=== PATIENT | female | born 1970 | race Caucasian/White ===

== ENCOUNTER 2021-01-19 16:04 | Emergency (ER) | payer OTHER, SELFPAY ==
[2021-01-19 18:48] LABS: Absolute Lymphocytes (CBC) 0.7 K/uL (0.7-4.9); Basophils % 0.1 % (0-1.3); Hematocrit 41.1 % (36.0-45.0); Lymphocytes % 9.2 % (15.3-44.8); MPV 7.2 fL (7.6-11.3); RBC Red Blood Cell Count 4.78 M/uL (3.86-4.86)
[2021-01-19] MEDS ORDERED: ONDANSETRON 4 MG/2 ML VIAL ONE (18:56)
[2021-01-19] MEDS ORDERED: NA CHLORIDE 0.9% 1,000 ML ONE (18:56)
[2021-01-19] MEDS ORDERED: KETOROLAC 30 MG/ML INJ ONE (18:56)
[2021-01-19 19:05] LABS: ALT/SGPT 17 U/L (12-78); AST/SGOT 10 U/L (15-37); Albumin 3.2 g/dL (3.4-5.0); Alkaline Phosphatase 124 U/L (45-117); BUN Blood Urea Nitrogen 10 mg/dL (7-18); Bicarbonate 24 mmol/L (21-32); Bilirubin Direct 0.2 mg/dL (0-0.2); Glucose Level 285 mg/dL (74-106); Lipase 50 U/L (73-393); Potassium 4.1 mmol/L (3.5-5.1); Sodium Level 135 mmol/L (136-145)
--- NOTE | 2021-01-19 19:34 | RAD REPORT ---
EXAM DESCRIPTION: CT - Stone Protocol - 01/19/2021 7:10 pm CLINICAL HISTORY: Flank pain. ABD PAIN COMPARISON: No comparisons TECHNIQUE: Axial images were obtained without oral or IV contrast. Lack of contrast limits solid org an and vascular assessment. The [id number] spans the entirety of the system partially obscuring uppermost abdomen and lung bases. Coronal reformatted images were obtained and reviewed. All CT scans are performed using dose optimization technique as appropriate and may include automated exposure control or mA/KV adjustment according to patient size. FINDINGS: The lower lung rodriges are clear. Imaged portions of the liver and spleen show no suspicious findings on non-contrast imaging. The panc reas and adrenal glands are normal. No pathologic lymphadenopathy in the abdomen or pelvis. No urinary tract stones or obstructive uropathy. No bowel obstruction, free air, free fluid or abscess. Normal appendix noted. Moderate degenerative change at L4-5 with vacuum disc degeneration. IMPRESSION: No urinary tract stones or obstructive uropathy. Moderately severe L4-5 spondylosis.
[2021-01-19 19:57] LABS: Urine Blood Negative (Negative); Urine Glucose 2+ (Negative); Urine Protein Trace (Negative); Urine Specific Gravity 1.015 (1.005-1.030); Urine pH 5.5 (5.0-7.0)
[2021-01-19] MEDS ORDERED: PROMETHAZINE INJ 25 MG/ML AMP ONE (20:24)
[2021-01-19] MEDS ORDERED: DICYCLOMINE HCL 10 MG CAP ONE (20:24)
--- NOTE | 2021-01-19 20:33 | ER ---
Nurse's Notes [facility] Name: Carmen Stahl Age: 50 yrs Sex: Female : 1970 Arrival Date: 01/19/2021 Time: 16:06 Bed 5 Private MD: Diagnosis: Acute Gastroenteritis Presentation: 01/19 16:48 Chief complaint: Patient states: lower back pain radiating to the L side and the front ca1 on the L side since yesterday. +N/V/D. Denies fever. Coronavirus screen: Client denies travel out of the [place] in the last 14 days. At this time, the client does not indicate any symptoms associated with coronavirus-19. Ebola Screen: Patient negative for fever greater than or equal to 101.5 degrees Fahrenheit, and additional compatible Ebola Virus Disease symptoms Patient denies exposure to infectious person. Patient denies travel to an Ebola-affected area in the 21 days before illness onset. No symptoms or risks identified at this time. Initial Sepsis Screen: Does the patient meet any 2 criteria? No. Patient's initial sepsis screen is negative. Does the patient have a suspected source of infection? No. Patient's initial sepsis screen is negative. Risk Assessment: Do you want to hurt yourself or someone else? Patient reports no desire to harm self or others. Onset of symptoms was January 19, 2021. 16:48 Method Of Arrival: Ambulatory ca1 16:48 Acuity: RIA 2 ca1 Triage Assessment: 18:15 General: Appears distressed, uncomfortable, Behavior is cooperative, appropriate for ld1 age, anxious. Pain: Complains of pain in left flank and left lower quadrant. EENT: No deficits noted. Neuro: No deficits noted. Cardiovascular: No deficits noted. Respiratory: No deficits noted. GI: Reports lower abdominal pain, nausea, vomiting. : No signs and/or symptoms were reported regarding the genitourinary system. Derm: No deficits noted. Musculoskeletal: No deficits noted. 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 - Social history:: Smoking status: Patient denies any tobacco usage or history of. Screenin:32 Abuse screen: Denies threats or abuse. Denies injuries from another. Nutritional ld1 screening: No deficits noted. Tuberculosis screening: No symptoms or risk factors identified. Fall Risk None identified. Assessment: 18:15 General: SEE TRIAGE NOTE. GI: Abdomen is non-distended. ld1 19:30 General: Appears in no apparent distress. comfortable, Behavior is calm, cooperative, rr5 appropriate for age. Neuro: Level of Consciousness is awake, alert, obeys commands, Oriented to person, place, time. Cardiovascular: Capillary refill < 3 seconds Patient's skin is warm and dry. Respiratory: Airway is patent Respiratory effort is even, unlabored, Respiratory pattern is regular, symmetrical. GI: Reports lower abdominal pain, diarrhea, nausea, vomiting. : Reports pain in left flank(s). 20:41 Reassessment: Patient appears in no apparent distress at this time. Patient is alert, rr5 oriented x 3, equal unlabored respirations, skin warm/dry/pink. discharge instruction given and explained without complaints made Patient states symptoms have improved. Vital Signs: 16:48 Pulse 125; Resp 18 S; Temp 97.5(TE); Pulse Ox 100% on R/A; Weight 63.5 kg (R); Height 5 ca1 ft. 3 in. (160.02 cm) (R); Pain 5/10; 16:53 BP 134 / 85; ca1 18:30 BP 126 / 75; Pulse 111; Resp 19; Pulse Ox 99% ; ld1 19:40 BP 120 / 76; Pulse 104; Resp 18; Pulse Ox 99% on R/A; rv 20:42 BP 120 / 71; Pulse 101; Resp 17; Pulse Ox 98% ; rr5 16:48 Body Mass Index 24.80 (63.50 kg, 160.02 cm) ca1 ED Course: 16:06 Patient arrived in ED. as 16:52 Triage completed. ca1 16:53 Arm band placed on right wrist. ca1 18:23 Jayesh Dykes, SAL is Primary Nurse. bp 18:29 Frantz Cason PA is PHCP. jr8 18:29 Augie Ramachandran MD is Attending Physician. jr8 18:32 Patient has correct armband on for positive identification. Placed in gown. Bed in low ld1 position. Call light in reach. Side rails up X2. 18:35 Inserted saline lock: 22 gauge in right antecubital area, using aseptic technique. ld1 Blood collected. 19:10 CT Stone Protocol In Process Unspecified. EDMS 20:42 No provider procedures requiring assistance completed. IV discontinued, intact, rr5 bleeding controlled, No redness/swelling at site. Pressure dressing applied. Administered Medications: 18:40 Drug: NS 0.9% 1000 ml Route: IV; Rate: 1000 ml; Site: right antecubital; bp 19:41 Follow up: IV Status: Completed infusion; IV Intake: 1000ml rv 18:40 Drug: TORadol - (ketorolac) 15 mg Route: IVP; Site: right antecubital; bp 19:41 Follow up: Response: No adverse reaction rv 18:40 Drug: Zofran (Ondansetron) 4 mg Route: IVP; Site: right antecubital; bp 19:41 Follow up: Response: No adverse reaction rv 20:12 Drug: Bentyl (dicyclomine) 20 mg Route: PO; rv 20:43 Follow up: Response: No adverse reaction rr5 20:12 Drug: Promethazine 12.5 mg Route: IVP; Site: right antecubital; rv 20:43 Follow up: Response: No adverse reaction rr5 Intake: 19:41 IV: 1000ml; Total: 1000ml. rv Outcome: 20:33 Discharge ordered by . jr8 20:42 Discharged to home ambulatory. rr5 20:42 Condition: stable 20:42 Discharge instructions given to patient, Instructed on discharge instructions, follow up and referral plans. medication usage, Demonstrated understanding of instructions, follow-up care, medications, Prescriptions given X 2. 20:43 Patient left the ED. rr5 Addendum: 01/23/2021 13:00 Addendum: Culture Results: Positive urine culture. Bacteria is resistant to, has a a5 intermediate sensitivity, or is not tested against prescribed antibiotics. Report given to KO[facility] for further evaluation and then to boat cleaner for follow up with patient. Phone call Attempt #1 left voice mail. 18:54 Addendum: Culture Results: Positive urine culture. Prescription called-in to pharmacy [facility] of choice. to [facility] in [place], [place], called in Bactrim DS per Rayo Miramontes NP. Signatures: Dispatcher [employer] Noris William Audri, RN RN aa5 Frantz Cason PA PA jr8 Jayesh Dykes, RN RN bp Sd Ho, RN RN rv Vinay Flynn, RN RN rr5 Alexandra Mccloud, RN RN ca1 Lida Oshea RN RN ld1
--- NOTE | 2021-01-19 20:33 | EDPHYS ---
Physician Documentation [facility] Name: Carmen Stahl Age: 50 yrs Sex: Female : 1970 Arrival Date: 01/19/2021 Time: 16:06 Bed 5 Private MD: ED Physician Augie Ramachandran HPI: 01/19 18:58 This 50 yrs old Female presents to ER via Ambulatory with complaints of jr8 Vomiting/Diarrhea, Flank Pain. 18:58 Patient presents for abd pain and vomiting. PMHx DM but has not had insulin in a week. jr8 Also reports polydipsia, polyuria, L flank pain, dysuria. . 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 - Social history:: Smoking status: Patient denies any tobacco usage or history of. ROS: 18:59 Cardiovascular: Negative for chest pain, palpitations, and edema, Respiratory: Negative jr8 for shortness of breath, cough, wheezing, and pleuritic chest pain, MS/Extremity: Negative for injury and deformity, Neuro: Negative for headache, weakness, numbness, tingling, and seizure. 18:59 Abdomen/GI: Positive for abdominal pain, vomiting, diarrhea. 18:59 Back: Positive for flank pain, bilaterally. 18:59 : Positive for burning with urination. 18:59 All other systems are negative. Exam: 19:01 Chest/axilla: Normal chest wall appearance and motion. Nontender with no deformity. jr8 No lesions are appreciated. Cardiovascular: Regular rate and rhythm with a normal S1 and S2. No gallops, murmurs, or rubs. Normal PMI, no JVD. No pulse deficits. Respiratory: Lungs have equal breath sounds bilaterally, clear to auscultation and percussion. No rales, rhonchi or wheezes noted. No increased work of breathing, no retractions or nasal flaring. Skin: Warm, dry with normal turgor. Normal color with no rashes, no lesions, and no evidence of cellulitis. MS/ Extremity: Pulses equal, no cyanosis. Neurovascular intact. Full, normal range of motion. Neuro: Awake and alert, GCS 15, oriented to person, place, time, and situation. Cranial nerves II-XII grossly intact. Motor strength 5/5 in all extremities. Sensory grossly intact. Cerebellar exam normal. Normal gait. 19:01 Abdomen/GI: Inspection: abdomen appears normal, Bowel sounds: normal, in all quadrants, Palpation: soft, moderate abdominal tenderness, in all quadrants, involuntary guarding, is elicited in all quadrants. 19:01 Back: CVA tenderness, that is moderate, is noted bilaterally. Vital Signs: 16:48 Pulse 125; Resp 18 S; Temp 97.5(TE); Pulse Ox 100% on R/A; Weight 63.5 kg (R); Height 5 ca1 ft. 3 in. (160.02 cm) (R); Pain 5/10; 16:53 BP 134 / 85; ca1 18:30 BP 126 / 75; Pulse 111; Resp 19; Pulse Ox 99% ; ld1 19:40 BP 120 / 76; Pulse 104; Resp 18; Pulse Ox 99% on R/A; rv 20:42 BP 120 / 71; Pulse 101; Resp 17; Pulse Ox 98% ; rr5 16:48 Body Mass Index 24.80 (63.50 kg, 160.02 cm) ca1 MDM: 18:42 Patient medically screened. jr8 20:05 Data reviewed: vital signs, nurses notes, lab test result(s), radiologic studies, CT jr8 scan. Data interpreted: Pulse oximetry: on room air is 99 %. Interpretation: normal. Counseling: I had a detailed discussion with the patient and/or guardian regarding: the historical points, exam findings, and any diagnostic results supporting the discharge/admit diagnosis, lab results, radiology results, the need for outpatient follow up, a family practitioner, to return to the emergency department if symptoms worsen or persist or if there are any questions or concerns that arise at home. 20:32 Special discussion: Based on the patient's Hx, exam, and Dx evaluation, there is no jr8 indication for emergent surgery or inpatient Tx. It is understood by the patient/guardian that if the Sx's persist or worsen they need to return immediately for re-evaluation. 20:32 ED course: Patient educated on what to look for to return: unmanageable BS, blood in jr8 vomit or stool, worsening of current condition. Educated on simple diet until issue resolves. Educated on talking with pharmacy for help with medication cost. Verbalized understanding. Good response to medications received in ED. Prescriptions given. . 01/19 17:08 Order name: Glucose, Ancillary Testing; Complete Time: 18:26 EDMS 01/19 18:28 Order name: Basic Metabolic [facility] 01/19 18:28 Order name: CBC with Diff [facility] 01/19 18:28 Order name: Hepatic Function [facility] 01/19 18:28 Order name: Lipase [facility] 01/19 18:29 Order name: Basic Metabolic Panel; Complete Time: 19:13 [facility] 01/19 18:29 Order name: CBC with Automated Diff; Complete Time: 18:57 [facility] 01/19 18:29 Order name: Liver (Hepatic) Function; Complete Time: 19:13 [facility] 01/19 18:29 Order name: Lipase; Complete Time: 19:13 [facility] 01/19 18:29 Order name: CT Stone Protocol; Complete Time: 19:36 [facility] 01/19 18:57 Order name: Urine Microscopic Only 8 01/19 19:57 Order name: Urine Dipstick-Ancillary; Complete Time: 20:02 [facility] 01/19 19:59 Order name: Urine --Ancillary (enter results) 3 01/19 19:59 Order name: Urine --Ancillary [facility] 01/19 18:28 Order name: IV Saline Lock; Complete Time: 18:43 [facility] 01/19 18:28 Order name: Labs collected and sent; Complete Time: 18:42 [facility] 01/19 18:57 Order name: Urine Dipstick-Ancillary (obtain specimen); Complete Time: 20:01 jr8 Administered Medications: 18:40 Drug: NS 0.9% 1000 ml Route: IV; Rate: 1000 ml; Site: right antecubital; bp 19:41 Follow up: IV Status: Completed infusion; IV Intake: 1000ml rv 18:40 Drug: TORadol - (ketorolac) 15 mg Route: IVP; Site: right antecubital; bp 19:41 Follow up: Response: No adverse reaction rv 18:40 Drug: Zofran (Ondansetron) 4 mg Route: IVP; Site: right antecubital; bp 19:41 Follow up: Response: No adverse reaction rv 20:12 Drug: Bentyl (dicyclomine) 20 mg Route: PO; rv 20:43 Follow up: Response: No adverse reaction rr5 20:12 Drug: Promethazine 12.5 mg Route: IVP; Site: right antecubital; rv 20:43 Follow up: Response: No adverse reaction rr5 Disposition: 01/19/21 20:33 Discharged to Home. Impression: Acute Gastroenteritis. - Condition is Stable. - Discharge Instructions: Viral Gastroenteritis, Adult. - Prescriptions for Bentyl 20 mg Oral Tablet - take 1 tablet by ORAL route every 6 hours As needed; 20 tablet. Zofran 4 mg Oral Tablet - take 1 tablet by ORAL route every 12 hours As needed; 20 tablet. - Medication Reconciliation Form, Thank You Letter, Antibiotic Education, Prescription Opioid Use form. - Follow up: Private Physician; When: 5 - 6 days; Reason: Recheck today's complaints, Continuance of care, Re-evaluation by your physician. - Problem is new. - Symptoms have improved. Addendum: 01/23/2021 19:11 Co-signature as Attending Physician, Augie Ramachandran MD. r n Signatures: Dispatcher [employer] EDMS Augie Ramachandran MD MD rn Roszak, Josh, PA PA jr8 Jayesh Dykes, RN RN bp Sd Ho RN RN rv Vinay Flynn RN RN rr5 Alexandra Mccloud RN SAL ca1 Lida Oshea RN RN ld1 Corrections: (The following items were deleted from the chart) 01/19 20:43 20:33 01/19/2021 20:33 Discharged to Home. Impression: Acute Gastroenteritis. Condition rr5 is Stable. Forms are Medication Reconciliation Form, Thank You Letter, Antibiotic Education, Prescription Opioid Use. Follow up: Private Physician; When: 5 - 6 days; Reason: Recheck today's complaints, Continuance of care, Re-evaluation by your physician. Problem is new. Symptoms have improved. jr8
[2021-01-19 20:48] VITALS: TEMP 97.5
[2021-01-19 20:54] VITALS: BP 120/71; O2SAT 98
[2021-01-19 21:36] LABS: Urine Bacteria >50 /HPF (<20)
[2021-01-19 21:48] LABS: Urine Specific Gravity/Preg 1.015 (1.005-1.030)
== END 2021-01-19 20:43 | disposition home or self-care (01) ==
LOC: ER 16:04
DX: K52.9 Noninfective gastroenteritis and colitis, unspecified (principal); E11.9 Type 2 diabetes mellitus without complications; Z79.4 Long term (current) use of insulin
CPT/HCPCS: 36415; 74176; 76377; 80048; 80076; 81003; 81015; 81025; 82947; 83690; 85025; 87077; 87086; 87088; 87186; 96361; 96374; 96375; 99284; J2405; J2550; J7030

== ENCOUNTER 2021-05-12 12:16 | Emergency (ER) | payer SELFPAY ==
--- OUTSIDE RECORDS SUMMARY | 2021-05-12 12:19 | XMS REPORT | Continuity of Care Document ---
:1970 Author Organization [facility] t Address [address] [place] [address] Care Team Providers Name Role Phone Unavailable Unavailable Unavailable Problems Condition Condition Condition Status Onset Resolution Last Treating Co mments Source Name Details Category Date Date Treatment Clinician Date Osteoporos Osteoporos Problem Active 2020-0 [facility] is is 3-18 da 00:00: Medical 00 Group Left upper Left Upper Problem Active 2020-0 [facility] quadrant Quadrant 2-18 da pain Pain 00:00: Medical 00 Group Lower Lower Problem Active 2020-0 [facility] abdominal Abdominal 2-18 da pain Pain 00:00: Medical 00 Group Urinary Urinary Problem Active 2019- [facility] tract Tract 4-24 da infectious Infectious 00:00: Me dical disease Disease 00 Group Plantar Plantar Problem Active 2019-0 [facility] fasciitis Fasciitis 4-24 da 00:00: Medical 00 Group Lethargy Lethargy Problem Active 2018-0 [facility] 4-11 da 00:00: Medical 00 Group Onychomyco Onychomyco Problem Active [facility] sis sis [facility] Candidiasi Candidiasi Problem Active [facility] s s [facility] Diabetes Diabetes Problem Active [facility] mellitus [facility] Type 2 Type 2 Problem Active [facility] diabetes Diabetes da mellitus [facility] Hyperchole Hyperchole Problem Active [facility] sterolemia sterolemia [facility] Constipati Constipati Problem Active [facility] on on [facility] Endometrio Endometrio Problem Active [facility] sis sis da (clinical) (Clinical) Me dical Group Dysmenorrh Dysmenorrh Problem Active [facility] ea ea [facility] Pain in Pain in Problem Active [facility] pelvis Pelvis [facility] Low back Low Back Problem Active [facility] pain [facility] Left lower Left Lower Problem Active [facility] quadrant Quadrant da pain Pain [facility] HPV - HPV - Problem Active [facility] Human Human da papillomav Papillomav Me dical irus test irus Test Grou p positive Positive Strain of Strain of Problem Active [facility] back Back da muscle [facility] Pain in Pain in Problem Active [facility] bilateral Bilateral da legs [facility] Allergies, Adverse Reactions, Alerts Allergy Allergy Status Severity Reaction(s) Onset Inactive Treating Comm ents Source Name Type Date Date Clinician VICTONANCY Allergy Active Moderate Diarrhea Larkin gor to to severe da substanc Medical e Group Social History Smoking Status Start Date Stop Date Source Never Smoker [facility] Medications Ordered Filled Start Stop Current Ordering Indication Dosage Frequency Signature Comments Components Source Medication Medication Date Date Medication? Clinician (SIG) Name Name alendronate alendronate No alendronat [facility] 70 mg 70 mg e 70 mg da tablet Take tablet Take tablet Medical 1 tablet 1 tablet Take 1 Group every week every week tablet by oral by oral every week route. route. by oral route. amoxicillin amoxicillin No amoxicilli [facility] 500 mg 500 mg n 500 mg da tablet tablet tablet Medical Group Contour Contour No Contour [facility] Next Test Next Test Next Test da Strips Take Strips Take Strips Medical 1 strip 3 1 strip 3 Take 1 Kavon up times a day times a day strip 3 by miscell. by miscell. times a route. route. day by miscell. route. Diflucan Diflucan No 1 Q1D Diflucan [facility] 150 mg 150 mg 150 mg da tablet Take tablet Take tablet Medical 1 tablet 1 tablet Take 1 Group every day every day tablet by oral by oral every day route. route. by oral route. insulin insulin No insulin [facility] syringe syringe syringe da U-100 with U-100 with U-100 with Medical needle 0.3 needle 0.3 needle 0.3 Group mL 31 gauge mL 31 gauge mL 31 x 02/12" USE x 02/12" USE gauge x DIRECTED DIRECTED 02/12" USE FOR INSULIN FOR INSULIN ADMINISTRAT ADMINISTRAT DIRECTED ION 4 TIMES ION 4 TIMES FOR DAILY DAILY INSULIN ADMINISTRA TION 4 TIMES DAILY Novolin N Novolin N No Novolin N [facility] NPH U-100 NPH U-100 NPH U-100 da Insulin Insulin Insulin Medica l isophane isophane isophane Kavon up 100 unit/mL 100 unit/mL 100 subcutaneou subcutaneou unit/mL s susp s susp subcutaneo INJECT 20 INJECT 20 us susp UNITS UNITS INJECT 20 SUBCUTANEOU SUBCUTANEOU UNITS SLY EVERY SLY EVERY SUBCUTANEO MORNING. MORNING. USLY EVERY MORNING. Novolin R Novolin R No Novolin R [facility] Regular Regular Regular da U-100 U-100 U-100 Medical Insulin 100 Insulin 100 Insulin Group unit/mL unit/mL 100 injection injection unit/mL solution solution injection SEE NOTES SEE NOTES solution Sliding Sliding SEE NOTES scale scale Sliding 150-200 use 150-200 use scale 2 units 2 units 150-200 200-250-4 200-250-4 use 2 units units units 250-300-6 250-300-6 200-250-4 units. if units. if units over 300 -8 over 300 -8 250-300-6 units. units. units. if check blood check blood over 300 sugars TID sugars TID -8 units. check blood sugars TID sulfamethox sulfamethox No 1 Q12H sulfametho [facility] azole 800 azole 800 xazole 800 da mg-trimetho mg-trimetho mg-trimeth Medical prim 160 mg prim 160 mg oprim 160 Group tablet Take tablet Take mg tablet 1 tablet 1 tablet Take 1 every 12 every 12 tablet hours by hours by every 12 oral route. oral route. hours by take for take for oral UTI UTI route. take for UTI terconazole terconazole No terconazol [facility] 0.4 % 0.4 % e 0.4 % da vaginal vaginal vaginal Medica l cream cream cream Group INSERT ONE INSERT ONE INSERT ONE APPLICATORF APPLICATORF APPLICATOR UL UL FUL VAGINALLY VAGINALLY VAGINALLY AT BEDTIME AT BEDTIME AT BEDTIME FOR 7 DAYS FOR 7 DAYS FOR 7 DAYS DIRECTED. DIRECTED. DIRECTED. Vital Signs Vital Name Observation Time Observation Value Comments Source BP Diastolic 2019-11-17 00:00:00 92 mm[Hg] [facility] Height 2019-11-17 00:00:00 63.5 [in_i] [facility] BMI (Body Mass 2019-11-17 00:00:00 30.9 kg/m2 [facility] Medical Index) Group BP Systolic 2019-11-17 00:00:00 144 mm[Hg] [facility] Body Weight 2019-11-17 00:00:00 2832 [oz_av] [facility] Body Weight 2019-01-21 00:00:00 2848 [oz_av] [facility] Procedures Procedure Date / Time Performing Clinician Source Performed CT, abdomen + pelvis, w/ 2019-11-17 00:00:00 [facility] Anesth Tubal Ligation [facility] Caesarean [facility] Tonsillectomy [facility] Encounters Start End Encounter Admission Attending Care Care Encounter Source Date/Time Date/Time Type Type Clinicians Facility Department ID 2019-11-17 2019-11-17 Kenton H[place]NESSY [place] - [id number] [facility] 00:00:00 00:00:00 MD Carl: [employer] [address] - [address], [facility], [place] [place] [address] , Ph. 2019-01-21 2019-01-21 Kenton HENNESSY [place] - [id number] M [facility] 00:00:00 00:00:00 MD Carl: [employer] [address] - [address], [facility] [address] , Ph. Results Test Description Test Time Test Comments Results Result Comments Source Urinalysis macro (dipstick) panel - Urine 2019-11-19 11:36:0 0 Test Item Value Reference Range Interpretation Comme nts Leukocytes (test code = Leukocytes) Negative Nitrite (test code = Nitrite) negative Urobilinogen (test code = Urobilinogen) .2 Protein (test code = Protein) Negative pH (test code = pH) 5.5 Blood (test code = Blood) Hemolyzed: Trace Specific [place] (test code = Specific [place]) 1.030 Ketone (test code = Ketone) Negative Bilirubin (test code = Bilirubin) Negative Glucose (test code = Glucose) Negative Appearance (test code = Appearance) Clear Color (test code = Color) Yellow [facility] Differential panel - [id number] 00:00:00 Test Item Value Reference Range Interpretation Comments Leukocytes [#/volume] in Blood 7.7 x10e3/uL 3.4-10.8 by Automated count (test code = 6690-2) Erythrocytes [#/volume] in 4.95 x10e6/uL 3.77-5.28 Blood by Automated count (test code = 789-8) Hemoglobin [Mass/volume] in 14.7 g/dL 11.1-15.9 Blood (test code = 718-7) Hematocrit [Volume Fraction] of 43.8 % 34.0-46.6 Blood by Automated count (test code = 4544-3) Erythrocyte mean corpuscular 89 fL 79-97 volume [Entitic volume] by Automated count (test code = 787-2) Erythrocyte mean corpuscular 29.7 pg 26.6-33.0 hemoglobin [Entitic mass] by Automated count (test code = 785-6) Erythrocyte mean corpuscular 33.6 g/dL 31.5-35.7 hemoglobin concentration [Mass/volume] by Automated count (test code = 786-4) Erythrocyte distribution width 12.9 % 11.7-15.4 [Ratio] by Automated count (test code = 788-0) Platelets [#/volume] in Blood 317 x10e3/uL 150-450 by Automated count (test code = 777-3) Neutrophils/100 leukocytes in 65 % not estab. Blood by Automated count (test code = 770-8) Lymphocytes/100 leukocytes in 27 % not estab. Blood by Automated count (test code = 736-9) Monocytes/100 leukocytes in 6 % not estab. Blood by Automated count (test code = 5905-5) Eosinophils/100 leukocytes in 2 % not estab. Blood by Automated count (test code = 713-8) Basophils/100 leukocytes in 0 % not estab. Blood by Automated count (test code = 706-2) immature cells (test code = manpower development specialist immature cells) Neutrophils [#/volume] in Blood 5.0 x10e3/uL 1.4-7.0 by Automated count (test code = 751-8) Lymphocytes [#/volume] in Blood 2.1 x10e3/uL 0.7-3.1 by Automated count (test code = 731-0) Monocytes [#/volume] in Blood 0.4 x10e3/uL 0.1-0.9 by Automated count (test code = 742-7) Eosinophils [#/volume] in Blood 0.1 x10e3/uL 0.0-0.4 by Automated count (test code = 711-2) Basophils [#/volume] in Blood 0.0 x10e3/uL 0.0-0.2 by Automated count (test code = 704-7) immature granulocytes (test 0 % not estab. code = immature granulocytes) Immature granulocytes 0.0 x10e3/uL 0.0-0.1 [#/volume] in Blood by Automated count (test code = 94428-6) Nucleated erythrocytes/100 manpower development specialist leukocytes [Ratio] in Blood by Automated count (test code = 97258-0) Morphology [Interpretation] in manpower development specialist Blood Narrative (test code = 66757-2) [facility] 2000 [facility] - Serum or Plasma 2019-11-18 00:00:00 Test Item Value Reference Range Interpretation Comments Glucose [Mass/volume] in 180 mg/dL 65-99 H Serum or Plasma (test code = 2345-7) Urea nitrogen [Mass/volume] 13 mg/dL 6-24 in Serum or Plasma (test code = 3094-0) Creatinine [Mass/volume] in 0.55 mg/dL 0.57-1.00 L Serum or Plasma (test code = 2160-0) eGFR if nonafricn AM (test 110 mL/min/1.73 >59 code = eGFR if nonafricn AM) eGFR if africn AM (test code 127 mL/min/1.73 >59 = eGFR if africn AM) Urea nitrogen/Creatinine 24 9-23 H [Mass Ratio] in Serum or Plasma (test code = 3097-3) Sodium [Moles/volume] in 139 mmol/L 134-144 Serum or Plasma (test code = 2951-2) Potassium [Moles/volume] in 4.4 mmol/L 3.5-5.2 Serum or Plasma (test code = 2823-3) Chloride [Moles/volume] in 100 mmol/L 96-106 Serum or Plasma (test code = 2075-0) Carbon dioxide, total 22 mmol/L 20-29 [Moles/volume] in Serum or Plasma (test code = 2027-9) Calcium [Mass/volume] in 9.1 mg/dL 8.7-10.2 Serum or Plasma (test code = 94803-9) Protein [Mass/volume] in 7.1 g/dL 6.0-8.5 Serum or Plasma (test code = 2885-2) Albumin [Mass/volume] in 4.2 g/dL 3.8-4.8 Serum or Plasma (test code = 1751-7) Globulin [Mass/volume] in 2.9 g/dL 1.5-4.5 Serum by calculation (test code = 76554-9) Albumin/Globulin [Mass Ratio] 1.4 1.2-2.2 in Serum or Plasma (test code = 1759-0) Bilirubin.total [Mass/volume] 0.5 mg/dL 0.0-1.2 in Serum or Plasma (test code = 1975-2) Alkaline phosphatase 129 IU/L 39-117 H [Enzymatic activity/volume] in Serum or Plasma (test code = 6768-6) Aspartate aminotransferase 13 IU/L 0-40 [Enzymatic activity/volume] in Serum or Plasma (test code = 1920-8) Alanine aminotransferase 11 IU/L 0-32 [Enzymatic activity/volume] in Serum or Plasma (test code = 1742-6) [facility] 1996 panel - Serum or [id number] 00:00:00 Test Item Value Reference Range Interpretation Comments Cholesterol [Mass/volume] in Serum 181 mg/dL 100-199 or Plasma (test code = 2093-3) Triglyceride [Mass/volume] in Serum 63 mg/dL 0-149 or Plasma (test code = 2571-8) Cholesterol in HDL [Mass/volume] in 54 mg/dL >39 Serum or Plasma (test code = 2085-9) Cholesterol in VLDL [Mass/volume] 13 mg/dL 5-40 in Serum or Plasma by calculation (test code = 21933-0) Cholesterol in LDL [Mass/volume] in 114 mg/dL 0-99 H Serum or Plasma by calculation (test code = 07302-2) comment: (test code = comment:) manpower development specialist [facility] [Enzymatic activity/volume] in Serum or Plasma 2019-11-18 00:00:00 Test Item Value Reference Range Interpretation Comments Lipase [Enzymatic activity/volume] in 17 U/L 14-72 Serum or Plasma (test code = 3040-3) [facility] [Enzymatic activity/volume] in Serum or Plasma 2019-11-18 00:00:00 Test Item Value Reference Range Interpretation Comments Amylase [Enzymatic activity/volume] in 32 U/L 31-110 Serum or Plasma (test code = 1798-8) [facility] [id number] 09:25:00 Test Item Value Reference Range Interpretation Comments [facility] blood collection sent to [facility] (test code = [facility] blood collection) [facility]
[2021-05-12 13:20] LABS: Absolute Lymphocytes (CBC) 1.2 K/uL (0.7-4.9); Basophils % 0.2 % (0-1.3); Hematocrit 43.2 % (36.0-45.0); Lymphocytes % 12.3 % (15.3-44.8); MPV 6.9 fL (7.6-11.3); RBC Red Blood Cell Count 5.02 M/uL (3.86-4.86)
[2021-05-12] MEDS ORDERED: NA CHLORIDE 0.9% 1,000 ML ONE ×2 (13:28→14:17)
--- NOTE | 2021-05-12 14:02 | ER ---
Nurse's Notes [facility] Name: Carmen Stahl Age: 51 yrs Sex: Female : 1970 Arrival Date: 05/12/2021 Time: 12:18 Bed Waiting Private MD: Diagnosis: Presentation: 05/12 12:48 Chief complaint: Patient states: PT reports sudden onset of palpitations, dizziness, ss throbbing to eyes, after inhaling unknown powder substance when handling trash. C/O not feeling well. Coronavirus screen: Client denies travel out of the [place] in the last 14 days. At this time, the client does not indicate any symptoms associated with coronavirus-19. Ebola Screen: Patient negative for fever greater than or equal to 101.5 degrees Fahrenheit, and additional compatible Ebola Virus Disease symptoms Patient denies exposure to infectious person. Patient denies travel to an Ebola-affected area in the 21 days before illness onset. Initial Sepsis Screen: Does the patient meet any 2 criteria? No. Patient's initial sepsis screen is negative. Does the patient have a suspected source of infection? No. Patient's initial sepsis screen is negative. Risk Assessment: Do you want to hurt yourself or someone else?. Onset of symptoms was May 12, 2021 at 08:30. 12:48 Method Of Arrival: Ambulatory ss 12:48 Acuity: RIA 3 ss 12:52 Chief complaint: Patient states: FSBS 293. ss 12:57 Note EKG and BGL done in triage. ss 13:59 Care prior to arrival: Medication(s) given: Normal saline infusion, 1000 mL. lm7 Triage Assessment: 12:52 General: Appears in no apparent distress. Behavior is calm, cooperative. Pain: Denies ss pain. Neuro: No deficits noted. Cardiovascular: Denies chest pain. Respiratory: No deficits noted. Derm: Skin is intact, Skin is dry, Skin is pink, warm \T\ dry. 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 Last tetanus immunization: unknown, Flu vaccine is not up to date. - Social history:: Smoking status: Patient denies any tobacco usage or history of. Vital Signs: 12:48 BP 195 / 103; Pulse 130; Resp 18; Temp 98.9; Pulse Ox 99% ; Weight 63.5 kg; Height 5 ss ft. 4 in. (162.56 cm); Pain 0/10; 12:48 Body Mass Index 24.03 (63.50 kg, 162.56 cm) ED Course: 12:18 Patient arrived in ED. mr 12:52 Triage completed. 12:58 Ehsan Núñez MD is Attending Physician. [facility] 13:05 Inserted saline lock: 20 gauge in right antecubital area, using aseptic technique. ne Blood collected. 13:58 intact, bleeding controlled, No redness/swelling at site. Pressure dressing applied. lm7 Administered Medications: 13:09 Drug: NS 0.9% 1000 ml Route: IV; Rate: 1 bolus; Site: right antecubital; Delivery: ss Primary tubing; 14:00 Follow up: Rate change 1000 ml; IV Status: Completed infusion lm7 Outcome: 14:01 AMA AMA form signed lm7 14:01 Condition: improved 14:01 Instructed on follow up and referral plans. the need for admit, Demonstrated understanding of instructions. 14:08 Patient left the ED. eb Signatures: Ehsan Núñez MD MD kdr Rivera, Dawna mr Zeny Winston, RN SAL Vani Ragland Moriah mt Botello, Elizabeth eb
[2021-05-12 14:13] LABS: ALT/SGPT 23 U/L (12-78); AST/SGOT 8 U/L (15-37); Albumin 3.9 g/dL (3.4-5.0); Alkaline Phosphatase 152 U/L (45-117); BUN Blood Urea Nitrogen 12 mg/dL (7-18); Bicarbonate 21 mmol/L (21-32); Bilirubin Direct 0.2 mg/dL (0-0.2); Bilirubin Total 0.6 mg/dL (0.2-1.0); Glucose Level 296 mg/dL (74-106); Lipase 47 U/L (73-393); Potassium 3.6 mmol/L (3.5-5.1); Protein, Total 8.1 g/dL (6.4-8.2); Sodium Level 134 mmol/L (136-145)
[2021-05-12 14:16] VITALS: BP 195/103; TEMP 98.9; O2SAT 99
== END 2021-05-12 14:08 | disposition left against medical advice (07) ==
LOC: ER 12:16
DX: R00.2 Palpitations (principal); E11.9 Type 2 diabetes mellitus without complications; Z79.4 Long term (current) use of insulin
CPT/HCPCS: 36415; 80048; 80076; 82947; 83690; 85025; 96360; 99283; J7030

== ENCOUNTER 2021-05-12 19:23 | Emergency (ER) | payer SELFPAY ==
--- OUTSIDE RECORDS SUMMARY | 2021-05-12 19:27 | XMS REPORT | Continuity of Care Document ---
:1970 Author Organization [facility] t Address [address] [place] [address] Care Team Providers Name Role Phone Unavailable [...] Medical 00 Group Urinary Urinary Problem Active 2019-0 [facility] tract Tract 4-24 da infectious Infectious [...] Start Date Stop Date Source Never Smoker [facility] Medications Ordered Filled Start [...] BMI (Body Mass 2019-11-17 00:00:00 30.9 kg/m2 [facility] Medical Index) Group BP Systolic 2019-11-17 00:00:00 144 mm[Hg] [facility] Body Weight 2019-11-17 00:00:00 2832 [oz_av] [facility] Body Weight 2019-01-21 00:00:00 2848 [oz_av] [facility] Procedures Procedure Date / Time Performing Clinician Source Performed CT, abdomen + pelvis, w/ 2019-11-17 00:00:00 [facility] Anesth Tubal Ligation [facility] Caes[facility] Tonsillectomy [facility] Encounters Start End Encounter Admission Attending Care Care Encounter Source Date/Time Date/Time Type Type Clinicians Facility Department ID 2019-11-17 2019-11-17 Kenton HENNESSY [place] - [id number] M [facility] 00:00:00 00:00:00 MD Carl: [employer] [facility] [address], [facility] [place] [address] , Ph. 2019-01-21 2019-01-21 Kenton HENNESSY [place] - [id number] M [facility] 00:00:00 00:00:00 MD Carl: [employer] [address] [place] [address] [address], [place] [address] , Ph. Results Test Description Test Time [...] (test code = Blood) Hemolyzed: Trace Specific [place] (test code = Specific [place]) 1.030 Ketone (test code = Ketone) Negative Bilirubin (test code = Bilirubin) Negative Glucose (test code = Glucose) Negative Appearance (test code = Appearance) Clear Color (test code = Color) Yellow [facility] W Auto Differential panel - [id number] 00:00:00 Test Item Value Reference Range Interpretation [...] = 706-2) immature cells (test code = spout positioner immature cells) Neutrophils [#/volume] in Blood 5.0 [...] Blood by Automated count (test code = 36827-6) Nucleated erythrocytes/100 spout positioner leukocytes [Ratio] in Blood by Automated count (test code = 61634-1) Morphology [Interpretation] in spout positioner Blood Narrative (test code = 70381-1) [facility] 2000 [facility] - Serum or Plasma [...] 8.7-10.2 Serum or Plasma (test code = 11584-3) Protein [Mass/volume] in 7.1 g/dL 6.0-8.5 Serum or Plasma (test code = 2885-2) Albumin [Mass/volume] in 4.2 g/dL 3.8-4.8 Serum or Plasma (test code = 1751-7) Globulin [Mass/volume] in 2.9 g/dL 1.5-4.5 Serum by calculation (test code = 75591-9) Albumin/Globulin [Mass Ratio] 1.4 1.2-2.2 in Serum [...] Serum or Plasma (test code = 1742-6) [facility] panel - Serum or [id number] 00:00:00 Test Item Value Reference Range Interpretation [...] or Plasma by calculation (test code = 50845-9) Cholesterol in LDL [Mass/volume] in 114 mg/dL 0-99 H Serum or Plasma by calculation (test code = 86787-2) comment: (test code = comment:) spout positioner [facility] [Enzymatic activity/volume] in Serum or Plasma 2019-11-18 00:00:00 Test Item Value Reference Range Interpretation Comments Lipase [Enzymatic activity/volume] in 17 U/L 14-72 Serum or Plasma (test code = 3040-3) [facility] [En[facility]atic activity/volume] in Serum or Plasma 2019-11-18 00:00:00 Test Item Value Reference Range Interpretation Comments Amylase [Enzymatic activity/volume] in 32 U/L 31-110 Serum or Plasma (test code = 1798-8) [facility] blood [id number] 09:25:00 Test Item Value Reference Range Interpretation Comments [facility] blood collection sent to [facility] (test code = [facility] blood collection) [facility]
== END 2021-05-13 01:31 | disposition left against medical advice (07) ==
LOC: ER 19:23
DX: Z53.21 Procedure and treatment not carried out due to patient leaving prior to being seen by health care provider (principal)
CPT/HCPCS: 93005

== ENCOUNTER 2023-09-12 23:16 | Emergency (ER) | payer SELFPAY ==
--- OUTSIDE RECORDS SUMMARY | 2023-09-12 23:21 | XMS REPORT | Continuity of Care Document ---
Author Name Unknown Address [address] [facility] [address] [place] [address] [facility] thconnect Address [address] [facility] [address] [place] [address] Care Team Providers Care Aligner Typewriter Name Role Phone PCP, PATIENT DOES NOT HAVE A Primary Care Physic jose Unavailable JAKOB GARCÍA Attending Clinician Unavailable Jakob García MD Attending Clinician NatashaBymihai Attending Clinician Unavailable JAKOB GARCÍA Admitting Clinician Unavailable Earline Admitting Clinician Unavailable Payers Payer Name Policy Type Policy Number Effective Date Expirati on Date Source [employer] (EPO) [id number] 2016 00:00:00 Problems Condition Name Condition Details Condition Category Status Onset Date Resolution Date Last Treatment Date Treating Clinician Comments Source Elevated blood-pres sure reading without diagnosis of hypertensi on Elevated Blood-pres sure Reading without Diagnosis of Hypertensi on Problem Active - 00:00: 00 [facility] Osteoporos is Osteoporos is Problem Active 3-18 00:00: 00 [facility] Left upper quadrant pain Left Upper Quadrant Pain Problem Active 2-18 00:00: 00 [facility] Lower abdominal pain Lower Abdominal Pain Problem Active 2-18 00:00: 00 [facility] Urinary tract infectious disease Urinary Tract Infectious Disease Problem Active 4-24 00:00: 00 [facility] Plantar fasciitis Plantar Fasciitis Problem Active 4-24 00:00: 00 [facility] Lethargy Lethargy Problem Active 4-11 00:00: 00 [facility] Dysmenorrh ea Dysmenorrh ea Disease Active 03-04 00:00: 00 [facility] Encounter for routine gynecologi orestes examinatio n Encounter for routine gynecologi orestes examinatio n Disease Active 03-04 00:00: 00 Overview: Formattin g of this note might be different from the original. ICD10 Diagnosis Term [employer] [facility] Essential hypertensi on Essential hypertensi on Disease Active 03-04 00:00: 00 Overview: Formattin g of this note might be different from the original. ICD10 Diagnosis Term [employer] [facility] Tubal ligation status Tubal ligation status Disease Active 03-04 00:00: 00 [facility] Endometrio sis Endometrio sis Disease Active 03-04 00:00: 00 [facility] Menorrhagi a Menorrhagi a Disease Active 03-04 00:00: 00 [facility] Onychomyco sis Onychomyco sis Problem Active [facility] Candidiasi s Candidiasi s Problem Active [facility] Diabetes mellitus Diabetes Mellitus Problem Active [facility] Type 2 diabetes mellitus Type 2 Diabetes Mellitus Problem Active [facility] Hyperchole sterolemia Hyperchole sterolemia Problem Active [facility] Constipati on Constipati on Problem Active [facility] Pain in pelvis Pain in Pelvis Problem Active [facility] Low back pain Low Back Pain Problem Active [facility] Left lower quadrant pain Left Lower Quadrant Pain Problem Active [facility] 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 Problem Active [facility] Strain of back muscle Strain of Back Muscle Problem Active [facility] Pain in bilateral legs Pain in Bilateral Legs Problem Active [facility] Allergies, Adverse Reactions, Alerts Allergy Name Allergy Type Status Severity Reaction(s) Onset Date Inactive Date Treating Clinician Comments Source NO KNOWN ALLERGIE S Drug Class Active [facility] VICTOZA Allergy to substanc e Active Moderate to severe Diarrhea [facility] Social History Social Habit Start Date Stop Date Quantity Comments Source Alcohol intake 2014-09-08 00:00:00 2014-09-08 00:00:00 Current non-drinker of alcohol (finding) [facility] Sex Assigned At 1970 00:00:00 1970 00:00:00 [facility] Smoking Status Start Date Stop Date Source Never Smoker [facility] Medications Ordered Medication Name Filled Medication Name Start Date Stop Date Current Medication? Ordering Clinician Indication Dosage Frequency Signature (SIG) Comments Components Source labetaloL (NORMODYNE) injection 10 mg 03-03 12:45: 00 03-03 12:09 :00 No 10mg 10 mg, Slow IV Push, ONCE, 1 dose, On 03/03/23 at 0745, Routine [facility] FENTanyl PF (SUBLIMAZE (PF)) injection 50 mcg 03-03 12:00: 00 03-03 11:07 :00 No 50ug 50 mcg, Slow IV Push, ONCE, 1 dose, On 03/03/23 at 0700, Routine [facility] iopamidol (ISOVUE 370-500 mL) injection 80 mL 03-03 11:45: 00 03-03 12:00 :00 No [id number] 80mL 80 mL, Intravenou s, ONCE, 1 dose, On 03/03/23 at 0700, Routine [facility] amLODIPine (NORVASC) 5 mg tablet 03-03 00:00: 00 04-03 04:59 :00 No [id number] 5mg Take 1 tablet by mouth in the morning for 30 days. [facility] Dose Unknown 2021-09 00:00: 00 No nystatin 100,000 unit/gram topical cream 06-27 00:00: 00 No 1unit/g reta nystatin 100,000 unit/gram topical cream 06-27 00:00: 00 No 1unit/g reta Levemir U-100 Insulin 100 unit/mL subcutaneou s solution 06-21 00:00: 00 No 20unit/ mL Dose Unknown 06-21 00:00: 00 No Dose Unknown 06-21 00:00: 00 No Levemir U-100 Insulin 100 unit/mL subcutaneou s solution 06-21 00:00: 00 No 20unit/ mL Dose Unknown 06-19 00:00: 00 No Levemir U-100 Insulin 100 unit/mL subcutaneou s solution 06-19 00:00: 00 No 20unit/ mL Dose Unknown 06-19 00:00: 00 No Levemir U-100 Insulin 100 unit/mL subcutaneou s solution 06-19 00:00: 00 No 20unit/ mL Dose Unknown 06-09 00:00: 00 No Dose Unknown 06-09 00:00: 00 No Novolin 70/30 U-100 Insulin 100 unit/mL subcutaneou s suspension 06-06 00:00: 00 No 20unit/ mL (70-30) Novolin 70/30 U-100 Insulin 100 unit/mL subcutaneou s suspension 06-06 00:00: 00 No 1unit/m L (70-30) Dose Unknown 06-06 00:00: 00 No Novolin 70/30 U-100 Insulin 100 unit/mL subcutaneou s suspension 06-06 00:00: 00 No 20unit/ mL (70-30) Novolin 70/30 U-100 Insulin 100 unit/mL subcutaneou s suspension 06-06 00:00: 00 No 1unit/m L (70-30) Dose Unknown 06-06 00:00: 00 No IBUPROFEN (ADVIL ORAL) 03-04 11:59: 42 Yes Take by mouth as needed. [facility] ACETAMINOPH EN/PAMABROM (MIDOL ORAL) 03-04 11:59: 42 Yes Take by mouth as needed. [facility] alendronate 70 mg tablet Take 1 tablet every week by oral route. alendronate 70 mg tablet Take 1 tablet every week by oral route. No alendronat e 70 mg tablet Take 1 tablet every week by oral route. [facility] cephalexin 500 mg capsule Take 1 capsule 3 times a day by oral route. cephalexin 500 mg capsule Take 1 capsule 3 times a day by oral route. No 1capsul e(s) TID cephalexin 500 mg capsule Take 1 capsule 3 times a day by oral route. [facility] dicyclomine 20 mg tablet TAKE 1 TABLET BY MOUTH EVERY 6 HOURS NEEDED dicyclomine 20 mg tablet TAKE 1 TABLET BY MOUTH EVERY 6 HOURS NEEDED No dicyclomin e 20 mg tablet TAKE 1 TABLET BY MOUTH EVERY 6 HOURS NEEDED [facility] Novolin N NPH U-100 Insulin isophane 100 unit/mL subcutaneou s susp INJECT 20 UNITS SUBCUTANEOU SLY EVERY MORNING. Novolin N NPH U-100 Insulin isophane 100 unit/mL subcutaneou s susp INJECT 20 UNITS SUBCUTANEOU SLY EVERY MORNING. No Novolin N NPH U-100 Insulin isophane 100 unit/mL subcutaneo us susp INJECT 20 UNITS SUBCUTANEO USLY EVERY MORNING. [facility] Novolin R Regular U-100 Insulin 100 unit/mL injection solution SEE NOTES Sliding scale 150-200 use 2 units 200-250-4 units 250-300-6 units. if over 300 -8 units. check blood sugars TID Novolin R Regular U-100 Insulin 100 unit/mL injection solution SEE NOTES Sliding scale 150-200 use 2 units 200-250-4 units 250-300-6 units. if over 300 -8 units. check blood sugars TID No Novolin R Regular U-100 Insulin 100 unit/mL injection solution SEE NOTES Sliding scale 150-200 use 2 units 200-250-4 units 250-300-6 units. if over 300 -8 units. check blood sugars TID [facility] Vital Signs Vital Name Observation Time Observation Value Comments Stacia lynntherese Systolic blood pressure 2023-03-03 12:49:26 149 mm[Hg] [facility] Diastolic blood pressure 2023-03-03 12:49:26 81 mm[Hg] [facility] Heart rate 2023-03-03 12:49:26 84 /min [facility] Respiratory rate 2023-03-03 12:49:26 12 /min [facility] Oxygen saturation in Arterial blood by Pulse oximetry 2023-03-03 12:49:26 98 /min [place] [facility] Body temperature 2023-03-03 10:55:00 36.56 Judy [facility] Body height 2023-03-03 10:55:00 160 cm [facility] Body weight 2023-03-03 10:55:00 69.854 kg [facility] BMI 2023-03-03 10:55:00 27.28 kg/m2 [facility] BP Diastolic 2021-05-18 00:00:00 90 mm[Hg] [facility] Height 2021-05-18 00:00:00 63.5 [in_i] [facility] BMI (Body Mass Index) 2021-05-18 00:00:00 26.2 kg/m2 [facility] BP Systolic 2021-05-18 00:00:00 157 mm[Hg] [facility] Body Weight 2021-05-18 00:00:00 2400 [oz_av] [facility] Body Weight 2019-11-17 00:00:00 2832 [oz_av] [facility] BP Diastolic 2019-11-17 00:00:00 92 mm[Hg] [facility] Height 2019-11-17 00:00:00 63.5 [in_i] [facility] BMI (Body Mass Index) 2019-11-17 00:00:00 30.9 kg/m2 [facility] BP Systolic 2019-11-17 00:00:00 144 mm[Hg] [facility] Body Weight 2019-01-21 00:00:00 2848 [oz_av] [facility] BP Systolic 2022-07-31 08:40:00 165 mm[Hg] BP Diastolic 2022-07-31 08:40:00 81 mm[Hg] Weight Measured 2022-07-31 08:40:00 147.80 pounds Height Measured 2022-07-31 08:40:00 64.00 inches Body Temperature 2022-07-31 08:40:00 98.70 degrees Heart Rate 2022-07-31 08:40:00 97.00 /min Respiratory Rate 2022-07-31 08:40:00 18.00 /min BP Systolic 2022-07-27 16:28:00 141 mm[Hg] BP Diastolic 2022-07-27 16:28:00 92 mm[Hg] Weight Measured 2022-07-27 16:28:00 141.60 pounds Height Measured 2022-07-27 16:28:00 64.00 inches Body Temperature 2022-07-27 16:28:00 97.90 degrees Heart Rate 2022-07-27 16:28:00 94.00 /min Respiratory Rate 2022-07-27 16:28:00 BP Systolic 2022-07-18 15:42:00 147 mm[Hg] BP Diastolic 2022-07-18 15:42:00 91 mm[Hg] Weight Measured 2022-07-18 15:42:00 146.80 pounds Height Measured 2022-07-18 15:42:00 64.00 inches Body Temperature 2022-07-18 15:42:00 98.30 degrees Heart Rate 2022-07-18 15:42:00 90.00 /min Respiratory Rate 2022-07-18 15:42:00 BP Systolic 2021-06-27 14:59:00 147 mm[Hg] BP Diastolic 2021-06-27 14:59:00 86 mm[Hg] Weight Measured 2021-06-27 14:59:00 155.00 pounds Height Measured 2021-06-27 14:59:00 64.00 inches Body Temperature 2021-06-27 14:59:00 98.30 degrees Heart Rate 2021-06-27 14:59:00 103.00 /min Respiratory Rate 2021-06-27 14:59:00 16.00 /min BP Systolic 2021-06-14 15:14:00 127 mm[Hg] BP Diastolic 2021-06-14 15:14:00 72 mm[Hg] Weight Measured 2021-06-14 15:14:00 153.00 pounds Height Measured 2021-06-14 15:14:00 64.00 inches Body Temperature 2021-06-14 15:14:00 97.20 degrees Heart Rate 2021-06-14 15:14:00 103.00 /min Respiratory Rate 2021-06-14 15:14:00 22.00 /min BP Systolic 2018-06-06 16:53:00 129 mm[Hg] BP Diastolic 2018-06-06 16:53:00 83 mm[Hg] Weight Measured 2018-06-06 16:53:00 174.80 pounds Height Measured 2018-06-06 16:53:00 64.00 inches Body Temperature 2018-06-06 16:53:00 98.20 degrees Heart Rate 2018-06-06 16:53:00 93.00 /min Respiratory Rate 2018-06-06 16:53:00 18.00 /min Procedures Procedure Date / Time Performed Performing Clinician Source CT ABDOMEN PELVIS W CONTRAST 2023-03-03 11:53:11 Jakob García [facility] LIPASE 2023-03-03 11:05:00 Jakob García [facility] COMP. METABOLIC PANEL (81684) 2023-03-03 11:05:00 Jakob García [facility] CBC WITH DIFF 2023-03-03 11:05:00 Jakob García [facility] URINALYSIS 2023-03-03 11:05:00 Jakob García [facility] NOTICE OF PRIVACY PRACTICES 2023-03-03 10:51:56 Doctor Unassigned, [place] [facility] CONSENT/REFUSAL FOR DIAGNOSIS AND TREATMENT 2023-03-03 10:49:14 Doctor Unassigned, [place] [facility] CT, abdomen + pelvis, w/ contrast 2019-11-17 00:00:00 [facility] Anesth Tubal Ligation [facility] Delivery [facility] Caesarean Section [facility] Tonsillectomy [facility] Plan of Care Planned Activity Planned Date Details Comments Source Diagnostic Test Pending 2021-05-18 00:00:00 urinalysis, dipstick [code = urinalysis, dipstick] [facility] Goal Plan of Care Not e [code = 35855-9] Goal Plan of Care Not e [code = 28798-2] Goal Plan of Care Not e [code = 63430-0] Goal Plan of Care Not e [code = 45293-0] Goal Plan of Care Not e [code = 56630-1] Goal Plan of Care Not e [code = 56530-4] Goal Plan of Care Not e [code = 60845-9] Goal Plan of Care Not e [code = 39270-7] Goal Plan of Care Not e [code = 10262-4] Goal Plan of Care Not e [code = 54658-5] Goal Plan of Care Not e [code = 29030-9] Goal Plan of Care Not e [code = 09962-5] Goal Plan of Care Not e [code = 85567-9] Goal Plan of Care Not e [code = 34697-1] Goal Plan of Care Not e [code = 51225-6] Goal Plan of Care Not e [code = 32309-1] Goal Plan of Care Not e [code = 33534-5] Goal Plan of Care Not e [code = 34000-3] Goal Plan of Care Not e [code = 15407-1] Goal Plan of Care Not e [code = 24719-7] Goal Plan of Care Not e [code = 04092-2] Goal Plan of Care Not e [code = 91925-9] Goal Plan of Care Not e [code = 97124-1] Goal Plan of Care Not e [code = 70133-7] Goal Plan of Care Not e [code = 70678-0] Goal Plan of Care Not e [code = 27527-1] Encounters Start Date/Time End Date/Time Encounter Type Admission Type Attending [facility] Facility Care Department Encounter ID Source 2023-03-03 05:50:00 2023-03-03 07:54:00 Emergency X JAKOB GARCÍA ERT [id number] [facility] 2023-03-03 05:50:00 2023-03-03 07:54:00 [facility] [id number] [facility] 2023-01-15 13:31:28 2023-01-15 13:31:28 Outpatient [facility] [id number] Naveed [place]sworth 2022-09-05 16:25:08 2022-09-05 16:25:08 Outpatient [facility] [id number] Naveed [place]sworth 2022-07-31 08:33:36 2022-07-31 08:33:36 Outpatient [facility] 1101 Naveed Ellsworth 2022-07-31 00:00:00 2022-07-31 00:00:00 Outpatient Visit [id number] 2022-07-27 16:13:14 2022-07-27 16:13:14 Outpatient [facility] [id number] Naveed [place]sworth 2022-07-18 15:35:38 2022-07-18 15:35:38 Outpatient [facility] [id number] Naveed Ellsworth 2022-07-18 00:00:00 2022-07-18 00:00:00 Outpatient Visit [id number] 2021-05-18 10:25:00 2021-05-18 10:25:00 Outpatient A_Carl [facility] [id number] [facility] 2021-05-18 00:00:00 2021-05-18 00:00:00 Kenton Henry MD: [address] [place] [address] [address], [place] [address] , Ph. [facility] [id number] [facility] 2021-05-17 05:49:00 2021-05-17 05:49:00 Outpatient A_Carl [facility] [id number] [facility] 2019-11-18 07:02:00 2019-11-18 07:02:00 Outpatient A_Byrd [facility] [id number] [facility] 2019-11-17 02:21:00 2019-11-17 02:21:00 Outpatient A_Byrd [facility] 217 [facility] 2019-11-17 00:00:00 2019-11-17 00:00:00 Kenton Henry MD: [address], [place] [address] , Ph. [facility] [id number] [facility] 2019-01-21 00:00:00 2019-01-21 00:00:00 Kenton Henry MD: [address], [place] [address] , Ph. [facility] [id number] [facility] Results Test Description Test Time Test Comments Results Result Co mments Source [facility]38:42* Test Item Value Reference Range Interpretation Comme nts LIPASE (test code = 5165173557) 47 U/L 0-220 Lab Interpretation (test cod e = 89453-4) Normal [facility] WITH [id number] 11:21:40* Test Item Value Reference Range Interpretation Comme nts WBC (test code = 6690-2) 6.96 See_Comment [Automated messa ge] The system which generated this result transmitted reference range: 4.30 - 11.10 10*3/?L. The reference range was not used to interpret this result as normal/abnormal. RBC (test code = 789-8) 4.75 See_Comment [Automated messa ge] The system which generated this result transmitted reference range: 3.93 - 5.25 10*6/?L. The reference range was not used to interpret this result as normal/abnormal. HGB (test code = 718-7) 14.5 g/dL 11.6-15.0 HCT (test code = 4544-3) 40.9 % 35.7-45.2 MCV (test code = 787-2) 86.1 fL 80.6-95.5 MCH (test code = 785-6) 30.5 pg 25.9-32.8 MCHC (test code = 786-4) 35.5 g/dL 31.6-35.1 H RDW-SD (test code = 92533-2) 36.6 fL 39.0-49.9 L RDW-CV (test code = 788-0) 11.7 % 12.0-15.5 L PLT (test code = 777-3) 265 See_Comment [Automated [employer] ge] The system which generated this result transmitted reference range: 166 - 358 10*3/?L. The reference range was not used to interpret this result as normal/abnormal. MPV (test code = 22286-6) 8.8 fL 9.5-12.9 L NRBC/100 WBC (test code = 8911889024) 0.0 See_Comment [Automated [employer] ssage] The system which generated this result transmitted reference range: 0.0 - 10.0 /100 WBCs. The reference range was not used to interpret this result as normal/abnormal. NRBC x10^3 (test code = 2384678561) See_Comment [Automated [employer] ge] The system which generated this result transmitted reference range: 10*3/?L. The reference range was not used to interpret this result as normal/abnormal. GRAN MAT (NEUT) % (test code = 770-8) 65.0 % IMM GRAN % (test code = 9197067724) 0.30 % LYMPH % (test code = 736-9) 26.9 % MONO % (test code = 5905-5) 6.2 % EOS % (test code = 713-8) 1.3 % BASO % (test code = 706-2) 0.3 % GRAN MAT x10^3(ANC) (test code = 8744884475) 4.53 10*3/uL 1.88-7.09 IMM GRAN x10^3 (test code = 5919199717) 0.00-0.06 LYMPH x10^3 (test code = 731-0) 1.87 10*3/uL 1.32-3.29 MONO x10^3 (test code = 742-7) 0.43 10*3/uL 0.33-0.92 EOS x10^3 (test code = 711-2) 0.09 10*3/uL 0.03-0.39 BASO x10^3 (test code = 704-7) 0.01-0.07 Lab Interpretation (test code = 91666-0) [facility]normal [facility] [id number] 16:23:34 * Test Item Value Reference Range Interpretation Comme nts ELISA SPECIES (test code = ) NEGATIVE NEGATIVE G. VAGINALIS (test code = 87984) NEGATIVE NEGATIVE T. VAGINALIS (test code = 63673) NEGATIVE NEGATIVE UNLESS OTHERWISE INDICATED, ALL TESTING PERFORMED ATCLINICAL PATHOLOGY [employer] [address] [place] [address] [address] [employer] CAR STEWARD/STEWARDESS: MARS ORDONEZ M.D. [place] NUMBER [id number] [facility] [place] [id number] VAGINAL PATHOGENS DNA [id number] 00:00:00* Test Item Value Reference Range Interpretation Comme nts ELISA SPECIES (test code = ) NEGATIVE G. VAGINALIS (test code = 09394) NEGATIVE T. VAGINALIS (test code = 82516) NEGATIVE VAGINAL PATHOGENS DNA [id number] 00:00:00* Test Item Value Reference Range Interpretation Comme nts ELISA SPECIES (test code = ) NEGATIVE G. VAGINALIS (test code = 14060) NEGATIVE T. VAGINALIS (test code = 97962) NEGATIVE CORTISOL, [id number] 00:00:00* Test Item Value Reference Range Interpretation Comme nts CORTISOL, RANDOM (test code = 2655) 5.8 UG/DL CORTISOL, [id number] 00:00:00* Test Item Value Reference Range Interpretation Comme nts CORTISOL, RANDOM (test code = 2655) 5.8 UG/DL CORTISOL, [id number] 00:00:00* Test Item Value Reference Range Interpretation Comme nts CORTISOL, RANDOM (test code = 2655) 5.8 UG/DL [id number] 00:00:00* Test Item Value Reference Range Interpretation Comme nts ESTRADIOL (test code = 2505) 21.6 PG/ML [id number] 00:00:00* Test Item Value Reference Range Interpretation Comme nts ESTRADIOL (test code = 2505) 21.6 PG/ML [id number] 00:00:00* Test Item Value Reference Range Interpretation Comme nts ESTRADIOL (test code = 2505) 21.6 PG/ML [id number] 00:00:00* Test Item Value Reference Range Interpretation Comme nts PROGESTERONE (test code = 2790) 0.21 NG/ML [id number] 00:00:00* Test Item Value Reference Range Interpretation Comme nts PROGESTERONE (test code = 2790) 0.21 NG/ML CORTISOL, [id number] 00:00:00* Test Item Value Reference Range Interpretation Comme nts CORTISOL, RANDOM (test code = 2655) 5.8 UG/DL CORTISOL, [id number] 00:00:00* Test Item Value Reference Range Interpretation Comme nts CORTISOL, RANDOM (test code = 2655) 5.8 UG/DL CORTISOL, [id number] 00:00:00* Test Item Value Reference Range Interpretation Comme nts CORTISOL, RANDOM (test code = 2655) 5.8 UG/DL [id number] 00:00:00* Test Item Value Reference Range Interpretation Comme nts ESTRADIOL (test code = 2505) 21.6 PG/ML [id number] 00:00:00* Test Item Value Reference Range Interpretation Comme nts ESTRADIOL (test code = 2505) 21.6 PG/ML [id number] 00:00:00* Test Item Value Reference Range Interpretation Comme nts ESTRADIOL (test code = 2505) 21.6 PG/ML [id number] 00:00:00* Test Item Value Reference Range Interpretation Comme nts PROGESTERONE (test code = 2790) 0.21 NG/ML [id number] 00:00:00* Test Item Value Reference Range Interpretation Comme nts PROGESTERONE (test code = 2790) 0.21 NG/ML CBC W/AUTO [id number] 00:00:00* Test Item Value Reference Range Interpretation Comme nts WBC (test code = 1001) 7.2 K/UL RBC (test code = 1002) 5.19 M/UL HEMOGLOBIN (test code = 1003) 15.0 G/DL HEMATOCRIT (test code = 1004) 45.4 % MCV (test code = 1005) 87.5 fL MCH (test code = 1006) 28.9 PG MCHC (test code = 1007) 33.0 G/DL RDW (test code = 1038) 12.0 % NEUTROPHILS (test code = 1008) 61.5 % LYMPHOCYTES (test code = 1010) 30.0 % MONOCYTES (test code = 1011) 6.3 % EOSINOPHILS (test code = 1012) 1.3 % BASOPHILS (test code = 1013) 0.3 % IMMATURE GRANULOCYTES (test code = 1036) 0.6 % NUCLEATED RBCS (test code = 1065) 0.0 /100WBC'S PLATELET COUNT (test code = 1015) 312 K/UL ABSOLUTE NEUTROPHILS (test c ode = 1066) 4.44 K/UL ABSOLUTE LYMPHOCYTES (test c ode = 1067) 2.16 K/UL ABSOLUTE MONOCYTES (test cod e = 1068) 0.45 K/UL ABSOLUTE EOSINOPHILS (test c ode = 1040) 0.09 K/UL ABSOLUTE BASOPHILS (test cod e = 1069) 0.02 K/UL ABS IMMATURE GRANULOCYTES (t est code = 1020) 0.04 K/UL ABS NUCLEATED RBCS (test cod e = 61411) 0.00 K/UL CBC W/AUTO [id number] 00:00:00* Test Item Value Reference Range Interpretation Comme nts WBC (test code = 1001) 7.2 K/UL RBC (test code = 1002) 5.19 M/UL HEMOGLOBIN (test code = 1003) 15.0 G/DL HEMATOCRIT (test code = 1004) 45.4 % MCV (test code = 1005) 87.5 fL MCH (test code = 1006) 28.9 PG MCHC (test code = 1007) 33.0 G/DL RDW (test code = 1038) 12.0 % NEUTROPHILS (test code = 1008) 61.5 % LYMPHOCYTES (test code = 1010) 30.0 % MONOCYTES (test code = 1011) 6.3 % EOSINOPHILS (test code = 1012) 1.3 % BASOPHILS (test code = 1013) 0.3 % IMMATURE GRANULOCYTES (test code = 1036) 0.6 % NUCLEATED RBCS (test code = 1065) 0.0 /100WBC'S PLATELET COUNT (test code = 1015) 312 K/UL ABSOLUTE NEUTROPHILS (test c ode = 1066) 4.44 K/UL ABSOLUTE LYMPHOCYTES (test c ode = 1067) 2.16 K/UL ABSOLUTE MONOCYTES (test cod e = 1068) 0.45 K/UL ABSOLUTE EOSINOPHILS (test c ode = 1040) 0.09 K/UL ABSOLUTE BASOPHILS (test cod e = 1069) 0.02 K/UL ABS IMMATURE GRANULOCYTES (t est code = 1020) 0.04 K/UL ABS NUCLEATED RBCS (test cod e = 42147) 0.00 K/UL CBC W/AUTO [id number] 00:00:00* Test Item Value Reference Range Interpretation Comme nts WBC (test code = 1001) 7.2 K/UL RBC (test code = 1002) 5.19 M/UL HEMOGLOBIN (test code = 1003) 15.0 G/DL HEMATOCRIT (test code = 1004) 45.4 % MCV (test code = 1005) 87.5 fL MCH (test code = 1006) 28.9 PG MCHC (test code = 1007) 33.0 G/DL RDW (test code = 1038) 12.0 % NEUTROPHILS (test code = 1008) 61.5 % LYMPHOCYTES (test code = 1010) 30.0 % MONOCYTES (test code = 1011) 6.3 % EOSINOPHILS (test code = 1012) 1.3 % BASOPHILS (test code = 1013) 0.3 % IMMATURE GRANULOCYTES (test code = 1036) 0.6 % NUCLEATED RBCS (test code = 1065) 0.0 /100WBC'S PLATELET COUNT (test code = 1015) 312 K/UL ABSOLUTE NEUTROPHILS (test c ode = 1066) 4.44 K/UL ABSOLUTE LYMPHOCYTES (test c ode = 1067) 2.16 K/UL ABSOLUTE MONOCYTES (test cod e = 1068) 0.45 K/UL ABSOLUTE EOSINOPHILS (test c ode = 1040) 0.09 K/UL ABSOLUTE BASOPHILS (test cod e = 1069) 0.02 K/UL ABS IMMATURE GRANULOCYTES (t est code = 1020) 0.04 K/UL ABS NUCLEATED RBCS (test cod e = 24253) 0.00 K/UL HEMOGLOBIN [id number] 00:00:00* Test Item Value Reference Range Interpretation Comme nts HEMOGLOBIN A1c (test code = 28158) 10.7 % HEMOGLOBIN [id number] 00:00:00* Test Item Value Reference Range Interpretation Comme nts HEMOGLOBIN A1c (test code = 48748) 10.7 % HEMOGLOBIN [id number] 00:00:00* Test Item Value Reference Range Interpretation Comme nts HEMOGLOBIN A1c (test code = 49242) 10.7 % LIPID [id number] 00:00:00* Test Item Value Reference Range Interpretation Comme nts CHOLESTEROL (test code = 2210) 203 MG/DL TRIGLYCERIDES (test code = 2232) 114 MG/DL HDL CHOLESTEROL (test code = 2220) 59 MG/DL CALC LDL CHOL (test code = 2237) 122 MG/DL RISK RATIO LDL/HDL (test cod e = 2238) 2.07 RATIO LIPID [id number] 00:00:00* Test Item Value Reference Range Interpretation Comme nts CHOLESTEROL (test code = 2210) 203 MG/DL TRIGLYCERIDES (test code = 2232) 114 MG/DL HDL CHOLESTEROL (test code = 2220) 59 MG/DL CALC LDL CHOL (test code = 2237) 122 MG/DL RISK RATIO LDL/HDL (test cod e = 2238) 2.07 RATIO COMPREHENSIVE METABOLIC [id number] 00:00:00* Test Item Value Reference Range Interpretation Comme nts GLUCOSE (test code = 2217) 368 MG/DL BUN (test code = 2208) 15 MG/DL CREATININE (test code = 2214) 0.77 MG/DL eGFR AMER. (test cod e = 04734) 104 ML/MIN/1.73 eGFR NON- AMER. (test code = 15683) 89 ML/MIN/1.73 CALC BUN/CREAT (test code = 2235) 19 RATIO SODIUM (test code = 2231) 138 MEQ/L POTASSIUM (test code = 2228) 4.1 MEQ/L CHLORIDE (test code = 2215) 97 MEQ/L CARBON DIOXIDE (test code = 2206) 28 MEQ/L CALCIUM (test code = 2209) 10.3 MG/DL PROTEIN, TOTAL (test code = 2229) 7.6 G/DL ALBUMIN (test code = 2201) 4.5 G/DL CALC GLOBULIN (test code = 2240) 3.1 G/DL CALC A/G RATIO (test code = 2234) 1.5 RATIO BILIRUBIN, TOTAL (test code = 2207) 0.4 MG/DL ALKALINE PHOSPHATASE (test code = 2204) 147 U/L AST (test code = 2218) 12 U/L ALT (test code = 2219) 22 U/L CBC W/AUTO [id number] 00:00:00* Test Item Value Reference Range Interpretation Comme nts WBC (test code = 1001) 7.2 K/UL RBC (test code = 1002) 5.19 M/UL HEMOGLOBIN (test code = 1003) 15.0 G/DL HEMATOCRIT (test code = 1004) 45.4 % MCV (test code = 1005) 87.5 fL MCH (test code = 1006) 28.9 PG MCHC (test code = 1007) 33.0 G/DL RDW (test code = 1038) 12.0 % NEUTROPHILS (test code = 1008) 61.5 % LYMPHOCYTES (test code = 1010) 30.0 % MONOCYTES (test code = 1011) 6.3 % EOSINOPHILS (test code = 1012) 1.3 % BASOPHILS (test code = 1013) 0.3 % IMMATURE GRANULOCYTES (test code = 1036) 0.6 % NUCLEATED RBCS (test code = 1065) 0.0 /100WBC'S PLATELET COUNT (test code = 1015) 312 K/UL ABSOLUTE NEUTROPHILS (test c ode = 1066) 4.44 K/UL ABSOLUTE LYMPHOCYTES (test c ode = 1067) 2.16 K/UL ABSOLUTE MONOCYTES (test cod e = 1068) 0.45 K/UL ABSOLUTE EOSINOPHILS (test c ode = 1040) 0.09 K/UL ABSOLUTE BASOPHILS (test cod e = 1069) 0.02 K/UL ABS IMMATURE GRANULOCYTES (t est code = 1020) 0.04 K/UL ABS NUCLEATED RBCS (test cod e = 76478) 0.00 K/UL COMPREHENSIVE METABOLIC [id number] 00:00:00* Test Item Value Reference Range Interpretation Comme nts GLUCOSE (test code = 2217) 368 MG/DL BUN (test code = 2208) 15 MG/DL CREATININE (test code = 2214) 0.77 MG/DL eGFR AMER. (test cod e = 09514) 104 ML/MIN/1.73 eGFR NON- AMER. (test code = 22886) 89 ML/MIN/1.73 CALC BUN/CREAT (test code = 2235) 19 RATIO SODIUM (test code = 223) 138 MEQ/L POTASSIUM (test code = 2228) 4.1 MEQ/L CHLORIDE (test code = 2215) 97 MEQ/L CARBON DIOXIDE (test code = 2206) 28 MEQ/L CALCIUM (test code = 2209) 10.3 MG/DL PROTEIN, TOTAL (test code = 222) 7.6 G/DL ALBUMIN (test code = 2201) 4.5 G/DL CALC GLOBULIN (test code = 2240) 3.1 G/DL CALC A/G RATIO (test code = 2234) 1.5 RATIO BILIRUBIN, TOTAL (test code = 2206) 0.4 MG/DL ALKALINE PHOSPHATASE (test code = 2203) 147 U/L AST (test code = 2217) 12 U/L ALT (test code = 2218) 22 U/L [id number] 00:00:00* Test Item Value Reference Range Interpretation Comme nts TSH, THIRD GENERATION (test code = 2821) 0.745 UIU/ML [id number] 00:00:00* Test Item Value Reference Range Interpretation Comme nts TSH, THIRD GENERATION (test code = 2821) 0.745 UIU/ML [id number] 00:00:00* Test Item Value Reference Range Interpretation Comme nts TSH, THIRD GENERATION (test code = 2821) 0.745 UIU/ML CBC W/AUTO [id number] 00:00:00* Test Item Value Reference Range Interpretation Comme nts WBC (test code = 1001) 7.2 K/UL RBC (test code = 1002) 5.19 M/UL HEMOGLOBIN (test code = 1003) 15.0 G/DL HEMATOCRIT (test code = 1004) 45.4 % MCV (test code = 1005) 87.5 fL MCH (test code = 1006) 28.9 PG MCHC (test code = 1007) 33.0 G/DL RDW (test code = 1038) 12.0 % NEUTROPHILS (test code = 1008) 61.5 % LYMPHOCYTES (test code = 1010) 30.0 % MONOCYTES (test code = 1011) 6.3 % EOSINOPHILS (test code = 1012) 1.3 % BASOPHILS (test code = 1013) 0.3 % IMMATURE GRANULOCYTES (test code = 1036) 0.6 % NUCLEATED RBCS (test code = 1065) 0.0 /100WBC'S PLATELET COUNT (test code = 1015) 312 K/UL ABSOLUTE NEUTROPHILS (test c ode = 1066) 4.44 K/UL ABSOLUTE LYMPHOCYTES (test c ode = 1067) 2.16 K/UL ABSOLUTE MONOCYTES (test cod e = 1068) 0.45 K/UL ABSOLUTE EOSINOPHILS (test c ode = 1040) 0.09 K/UL ABSOLUTE BASOPHILS (test cod e = 1069) 0.02 K/UL ABS IMMATURE GRANULOCYTES (t est code = 1020) 0.04 K/UL ABS NUCLEATED RBCS (test cod e = 71139) 0.00 K/UL CBC W/AUTO [id number] 00:00:00* Test Item Value Reference Range Interpretation Comme nts WBC (test code = 1001) 7.2 K/UL RBC (test code = 1002) 5.19 M/UL HEMOGLOBIN (test code = 1003) 15.0 G/DL HEMATOCRIT (test code = 1004) 45.4 % MCV (test code = 1005) 87.5 fL MCH (test code = 1006) 28.9 PG MCHC (test code = 1007) 33.0 G/DL RDW (test code = 1038) 12.0 % NEUTROPHILS (test code = 1008) 61.5 % LYMPHOCYTES (test code = 1010) 30.0 % MONOCYTES (test code = 1011) 6.3 % EOSINOPHILS (test code = 1012) 1.3 % BASOPHILS (test code = 1013) 0.3 % IMMATURE GRANULOCYTES (test code = 1036) 0.6 % NUCLEATED RBCS (test code = 1065) 0.0 /100WBC'S PLATELET COUNT (test code = 1015) 312 K/UL ABSOLUTE NEUTROPHILS (test c ode = 1066) 4.44 K/UL ABSOLUTE LYMPHOCYTES (test c ode = 1067) 2.16 K/UL ABSOLUTE MONOCYTES (test cod e = 1068) 0.45 K/UL ABSOLUTE EOSINOPHILS (test c ode = 1040) 0.09 K/UL ABSOLUTE BASOPHILS (test cod e = 1069) 0.02 K/UL ABS IMMATURE GRANULOCYTES (t est code = 1020) 0.04 K/UL ABS NUCLEATED RBCS (test cod e = 40684) 0.00 K/UL HEMOGLOBIN [id number] 00:00:00* Test Item Value Reference Range Interpretation Comme nts HEMOGLOBIN A1c (test code = 95022) 10.7 % HEMOGLOBIN [id number] 00:00:00* Test Item Value Reference Range Interpretation Comme nts HEMOGLOBIN A1c (test code = 58508) 10.7 % HEMOGLOBIN [id number] 00:00:00* Test Item Value Reference Range Interpretation Comme nts HEMOGLOBIN A1c (test code = 11122) 10.7 % LIPID [id number] 00:00:00* Test Item Value Reference Range Interpretation Comme nts CHOLESTEROL (test code = 2210) 203 MG/DL TRIGLYCERIDES (test code = 2232) 114 MG/DL HDL CHOLESTEROL (test code = 2220) 59 MG/DL CALC LDL CHOL (test code = 2237) 122 MG/DL RISK RATIO LDL/HDL (test cod e = 2238) 2.07 RATIO LIPID [id number] 00:00:00* Test Item Value Reference Range Interpretation Comme nts CHOLESTEROL (test code = 2210) 203 MG/DL TRIGLYCERIDES (test code = 2232) 114 MG/DL HDL CHOLESTEROL (test code = 2220) 59 MG/DL CALC LDL CHOL (test code = 2237) 122 MG/DL RISK RATIO LDL/HDL (test cod e = 2238) 2.07 RATIO COMPREHENSIVE METABOLIC [id number] 00:00:00* Test Item Value Reference Range Interpretation Comme nts GLUCOSE (test code = 2217) 368 MG/DL BUN (test code = 2208) 15 MG/DL CREATININE (test code = 2214) 0.77 MG/DL eGFR AMER. (test cod e = 83671) 104 ML/MIN/1.73 eGFR NON- AMER. (test code = 91715) 89 ML/MIN/1.73 CALC BUN/CREAT (test code = 2235) 19 RATIO SODIUM (test code = 2231) 138 MEQ/L POTASSIUM (test code = 2228) 4.1 MEQ/L CHLORIDE (test code = 2215) 97 MEQ/L CARBON DIOXIDE (test code = 2206) 28 MEQ/L CALCIUM (test code = 2209) 10.3 MG/DL PROTEIN, TOTAL (test code = 2229) 7.6 G/DL ALBUMIN (test code = 2201) 4.5 G/DL CALC GLOBULIN (test code = 2240) 3.1 G/DL CALC A/G RATIO (test code = 2234) 1.5 RATIO BILIRUBIN, TOTAL (test code = 2207) 0.4 MG/DL ALKALINE PHOSPHATASE (test code = 2204) 147 U/L AST (test code = 2218) 12 U/L ALT (test code = 2219) 22 U/L COMPREHENSIVE METABOLIC [id number] 00:00:00* Test Item Value Reference Range Interpretation Comme nts GLUCOSE (test code = 2217) 368 MG/DL BUN (test code = 2208) 15 MG/DL CREATININE (test code = 2214) 0.77 MG/DL eGFR AMER. (test cod e = 05539) 104 ML/MIN/1.73 eGFR NON- AMER. (test code = 40593) 89 ML/MIN/1.73 CALC BUN/CREAT (test code = 2235) 19 RATIO SODIUM (test code = 2231) 138 MEQ/L POTASSIUM (test code = 2228) 4.1 MEQ/L CHLORIDE (test code = 2215) 97 MEQ/L CARBON DIOXIDE (test code = 2206) 28 MEQ/L CALCIUM (test code = 2209) 10.3 MG/DL PROTEIN, TOTAL (test code = 2229) 7.6 G/DL ALBUMIN (test code = 2201) 4.5 G/DL CALC GLOBULIN (test code = 2240) 3.1 G/DL CALC A/G RATIO (test code = 2234) 1.5 RATIO BILIRUBIN, TOTAL (test code = 2207) 0.4 MG/DL ALKALINE PHOSPHATASE (test code = 2204) 147 U/L AST (test code = 2218) 12 U/L ALT (test code = 2219) 22 U/L [id number] 00:00:00* Test Item Value Reference Range Interpretation Comme nts TSH, THIRD GENERATION (test code = 2821) 0.745 UIU/ML [id number] 00:00:00* Test Item Value Reference Range Interpretation Comme nts TSH, THIRD GENERATION (test code = 2821) 0.745 UIU/ML [id number] 00:00:00* Test Item Value Reference Range Interpretation Comme nts TSH, THIRD GENERATION (test code = 2821) 0.745 UIU/ML Urinalysis macro (dipstick) panel - [id number] 11:36:00* Test Item Value Reference Range Interpretation Comme nts Leukocytes (test code = Leukocytes) Negative Nitrite (test code = Nitrite) negative Urobilinogen (test code = Urobilinogen) .2 Protein (test code = Protein) Negative pH (test code = pH) 5.5 Blood (test code = Blood) Hemolyzed: Trace Specific [place] (test code = Specific [place]) 1.030 Ketone (test code = Ketone) Negative Bilirubin (test code = Bilirubin) Negative Glucose (test code = Glucose) Negative Appearance (test code = Appearance) Clear Color (test code = Color) Yellow [facility] W Auto Differential panel - [id number] 00:00:00 * Test Item Value Reference Range Interpretation Comme nts Leukocytes [#/volume] in Blo od by Automated count (test code = 6690-2) 7.7 x10e3/uL 3.4-10.8 Erythrocytes [#/volume] in Blood by Automated count (test code = 789-8) 4.95 x10e6/uL 3.77-5.28 Hemoglobin [Mass/volume] in Blood (test code = 718-7) 14.7 g/dL 11.1-15.9 Hematocrit [Volume Fraction] of Blood by Automated count (test code = 4544-3) 43.8 % 34.0-46.6 Erythrocyte mean corpuscular volume [Entitic volume] by Automated count (test code = 787-2) 89 fL 79-97 Erythrocyte mean corpuscular hemoglobin [Entitic mass] by Automated count (test code = 785-6) 29.7 pg 26.6-33.0 Erythrocyte mean corpuscular hemoglobin concentration [Mass/volume] by Automated count (test code = 786-4) 33.6 g/dL 31.5-35.7 Erythrocyte distribution wid th [Ratio] by Automated count (test code = 788-0) 12.9 % 11.7-15.4 Platelets [#/volume] in Bloo d by Automated count (test code = 777-3) 317 x10e3/uL 150-450 Neutrophils/100 leukocytes i n Blood by Automated count (test code = 770-8) 65 % not estab. Lymphocytes/100 leukocytes i n Blood by Automated count (test code = 736-9) 27 % not estab. Monocytes/100 leukocytes in Blood by Automated count (test code = 5905-5) 6 % not estab. Eosinophils/100 leukocytes i n Blood by Automated count (test code = 713-8) 2 % not estab. Basophils/100 leukocytes in Blood by Automated count (test code = 706-2) 0 % not estab. 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 2019-11-18 00:00:00* Test Item Value Reference Range Interpretation Comme nts Glucose [Mass/volume] in Serum or Plasma (test code = 2345-7) 180 mg/dL 65-99 H Urea nitrogen [Mass/volume] in Serum or Plasma (test code = 3094-0) 13 mg/dL 6-24 Creatinine [Mass/volume] in Serum or Plasma (test code = 2160-0) 0.55 mg/dL 0.57-1.00 L eGFR if nonafricn AM (test code = eGFR if nonafricn AM) 110 mL/min/1.73 >59 eGFR if africn AM (test code = eGFR if africn AM) 127 mL/min/1.73 >59 Urea nitrogen/Creatinine [Mass Ratio] in Serum or Plasma (test code = 3097-3) 24 9-23 H Sodium [Moles/volume] in Serum or Plasma (test code = 2951-2) 139 mmol/L 134-144 Potassium [Moles/volume] in Serum or Plasma (test code = 2823-3) 4.4 mmol/L 3.5-5.2 Chloride [Moles/volume] in Serum or Plasma (test code = 2074-0) 100 mmol/L 96-106 Carbon dioxide, total [Moles/volume] in Serum or Plasma (test code = 2027-) 22 mmol/L 20-29 Calcium [Mass/volume] in Serum or Plasma (test code = 21783-8) 9.1 mg/dL 8.7-10.2 Protein [Mass/volume] in Serum or Plasma (test code = 2885-2) 7.1 g/dL 6.0-8.5 Albumin [Mass/volume] in Serum or Plasma (test code = 1751-7) 4.2 g/dL 3.8-4.8 Globulin [Mass/volume] in Serum by calculation (test code = 97483-6) 2.9 g/dL 1.5-4.5 Albumin/Globulin [Mass Ratio ] in Serum or Plasma (test code = 1759-0) 1.4 1.2-2.2 Bilirubin.total [Mass/volume ] in Serum or Plasma (test code = 1974-) 0.5 mg/dL 0.0-1.2 Alkaline phosphatase [Enzymatic activity/volume] in Serum or Plasma (test code = 6768-6) 129 IU/L 39-117 H Aspartate aminotransferase [Enzymatic activity/volume] in Serum or Plasma (test code = 192-8) 13 IU/L 0-40 Alanine aminotransferase [Enzymatic activity/volume] in Serum or Plasma (test code = 1742-6) 11 IU/L 0-32 [facility] - [facility] or [id number] 00:00:00* Test Item Value Reference Range Interpretation Comme nts Cholesterol [Mass/volume] in Serum or Plasma (test code = 2093-3) 181 mg/dL 100-199 Triglyceride [Mass/volume] i n Serum or Plasma (test code = 2571-8) 63 mg/dL 0-149 Cholesterol in HDL [Mass/vol ume] in Serum or Plasma (test code = 2085-9) 54 mg/dL >39 Cholesterol in VLDL [Mass/vo lume] in Serum or Plasma by calculation (test code = 38789-0) 13 mg/dL 5-40 Cholesterol in LDL [Mass/vol ume] in Serum or Plasma by calculation (test code = 40593-4) 114 mg/dL 0-99 H comment: (test 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 = 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:) 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 [facility] [En[facility]atic activity/volume] in Serum or Plasma 2019-11-18 00:00:00* Test Item Value Reference Range Interpretation Comme nts Lipase [Enzymatic activity/v olume] in Serum or Plasma (test code = 3040-3) 17 U/L 14-72 [facility]] in Serum or Plasma 2019-11-18 00:00:00* Test Item Value Reference Range Interpretation Comme nts Amylase [Enzymatic activity/ volume] in Serum or Plasma (test code = 1798-8) 32 U/L 31-110 [facility] [id number] 09:25:00* Test Item Value Reference Range Interpretation Comme nts [facility] blood collection (test code = [facility] blood collection) [facility]REFLEX [id number] 00:00:00* Test Item Value Reference Range Interpretation Comme nts COLOR (test code = 1501) TEST NOT PERFORMED APPEARANCE (test code = 1502) TEST NOT PERFORMED SPECIFIC GRAVITY (test code = 1503) TEST NOT PERFORMED LEUKOCYTE ESTERASE (test code = 1504) TEST NOT PERFORMED NITRITE (test code = 1505) TEST NOT PERFORMED pH (test code = 1506) TEST NOT PERFORMED PROTEIN (test code = 1507) TEST NOT PERFORMED GLUCOSE (test code = 1508) TEST NOT PERFORMED KETONES (test code = 1509) TEST NOT PERFORMED UROBILINOGEN (test code = 1510) TEST NOT PERFORMED MG/DL BILIRUBIN (test code = 1511) TEST NOT PERFORMED OCCULT BLOOD (test code = 1512) TEST NOT PERFORMED URINALYSIS W/REFLEX [id number] 00:00:00* Test Item Value Reference Range Interpretation Comme nts COLOR (test code = 1501) TEST NOT PERFORMED APPEARANCE (test code = 1502) TEST NOT PERFORMED SPECIFIC GRAVITY (test code = 1503) TEST NOT PERFORMED LEUKOCYTE ESTERASE (test code = 1504) TEST NOT PERFORMED NITRITE (test code = 1505) TEST NOT PERFORMED pH (test code = 1506) TEST NOT PERFORMED PROTEIN (test code = 1507) TEST NOT PERFORMED GLUCOSE (test code = 1508) TEST NOT PERFORMED KETONES (test code = 1509) TEST NOT PERFORMED UROBILINOGEN (test code = 1510) TEST NOT PERFORMED MG/DL BILIRUBIN (test code = 1511) TEST NOT PERFORMED OCCULT BLOOD (test code = 1512) TEST NOT PERFORMED URINALYSIS W/REFLEX [id number] 00:00:00* Test Item Value Reference Range Interpretation Comme nts COLOR (test code = 1501) TEST NOT PERFORMED APPEARANCE (test code = 1502) TEST NOT PERFORMED SPECIFIC GRAVITY (test code = 1503) TEST NOT PERFORMED LEUKOCYTE ESTERASE (test code = 1504) TEST NOT PERFORMED NITRITE (test code = 1505) TEST NOT PERFORMED pH (test code = 1506) TEST NOT PERFORMED PROTEIN (test code = 1507) TEST NOT PERFORMED GLUCOSE (test code = 1508) TEST NOT PERFORMED KETONES (test code = 1509) TEST NOT PERFORMED UROBILINOGEN (test code = 1510) TEST NOT PERFORMED MG/DL BILIRUBIN (test code = 1511) TEST NOT PERFORMED OCCULT BLOOD (test code = 1512) TEST NOT PERFORMED URINALYSIS W/REFLEX [id number] 00:00:00* Test Item Value Reference Range Interpretation Comme nts COLOR (test code = 1501) TEST NOT PERFORMED APPEARANCE (test code = 1502) TEST NOT PERFORMED SPECIFIC GRAVITY (test code = 1503) TEST NOT PERFORMED LEUKOCYTE ESTERASE (test code = 1504) TEST NOT PERFORMED NITRITE (test code = 1505) TEST NOT PERFORMED pH (test code = 1506) TEST NOT PERFORMED PROTEIN (test code = 1507) TEST NOT PERFORMED GLUCOSE (test code = 1508) TEST NOT PERFORMED KETONES (test code = 1509) TEST NOT PERFORMED UROBILINOGEN (test code = 1510) TEST NOT PERFORMED MG/DL BILIRUBIN (test code = 1511) TEST NOT PERFORMED OCCULT BLOOD (test code = 1512) TEST NOT PERFORMED LIPID [id number] 00:00:00* Test Item Value Reference Range Interpretation Comme nts CHOLESTEROL (test code = 2210) 196 MG/DL TRIGLYCERIDES (test code = 2232) 70 MG/DL HDL CHOLESTEROL (test code = 2220) 51 MG/DL CALC LDL CHOL (test code = 2237) 131 MG/DL RISK RATIO LDL/HDL (test cod e = 2238) 2.57 RATIO LIPID [id number] 00:00:00* Test Item Value Reference Range Interpretation Comme nts CHOLESTEROL (test code = 2210) 196 MG/DL TRIGLYCERIDES (test code = 2232) 70 MG/DL HDL CHOLESTEROL (test code = 2220) 51 MG/DL CALC LDL CHOL (test code = 2237) 131 MG/DL RISK RATIO LDL/HDL (test cod e = 2238) 2.57 RATIO CBC W/AUTO [id number] 00:00:00* Test Item Value Reference Range Interpretation Comme nts WBC (test code = 1001) 6.5 K/UL RBC (test code = 1002) 5.00 M/UL HEMOGLOBIN (test code = 1003) 14.6 G/DL HEMATOCRIT (test code = 1004) 43.2 % MCV (test code = 1005) 86.4 fL MCH (test code = 1006) 29.2 PG MCHC (test code = 1007) 33.8 G/DL RDW (test code = 1038) 11.9 % NEUTROPHILS (test code = 1008) 66.5 % LYMPHOCYTES (test code = 1010) 26.0 % MONOCYTES (test code = 1011) 6.0 % EOSINOPHILS (test code = 1012) 1.2 % BASOPHILS (test code = 1013) 0.3 % PLATELET COUNT (test code = 1015) 290 K/UL CBC W/AUTO [id number] 00:00:00* Test Item Value Reference Range Interpretation Comme nts WBC (test code = 1001) 6.5 K/UL RBC (test code = 1002) 5.00 M/UL HEMOGLOBIN (test code = 1003) 14.6 G/DL HEMATOCRIT (test code = 1004) 43.2 % MCV (test code = 1005) 86.4 fL MCH (test code = 1006) 29.2 PG MCHC (test code = 1007) 33.8 G/DL RDW (test code = 1038) 11.9 % NEUTROPHILS (test code = 1008) 66.5 % LYMPHOCYTES (test code = 1010) 26.0 % MONOCYTES (test code = 1011) 6.0 % EOSINOPHILS (test code = 1012) 1.2 % BASOPHILS (test code = 1013) 0.3 % PLATELET COUNT (test code = 1015) 290 K/UL CBC W/AUTO [id number] 00:00:00* Test Item Value Reference Range Interpretation Comme nts WBC (test code = 1001) 6.5 K/UL RBC (test code = 1002) 5.00 M/UL HEMOGLOBIN (test code = 1003) 14.6 G/DL HEMATOCRIT (test code = 1004) 43.2 % MCV (test code = 1005) 86.4 fL MCH (test code = 1006) 29.2 PG MCHC (test code = 1007) 33.8 G/DL RDW (test code = 1038) 11.9 % NEUTROPHILS (test code = 1008) 66.5 % LYMPHOCYTES (test code = 1010) 26.0 % MONOCYTES (test code = 1011) 6.0 % EOSINOPHILS (test code = 1012) 1.2 % BASOPHILS (test code = 1013) 0.3 % PLATELET COUNT (test code = 1015) 290 K/UL HEMOGLOBIN [id number] 00:00:00* Test Item Value Reference Range Interpretation Comme nts HEMOGLOBIN A1c (test code = 46990) 8.3 % HEMOGLOBIN [id number] 00:00:00* Test Item Value Reference Range Interpretation Comme nts HEMOGLOBIN A1c (test code = 93418) 8.3 % HEMOGLOBIN [id number] 00:00:00* Test Item Value Reference Range Interpretation Comme nts HEMOGLOBIN A1c (test code = 04821) 8.3 % [id number] 00:00:00* Test Item Value Reference Range Interpretation Comme nts TSH, THIRD GENERATION (test code = 2821) 1.070 UIU/ML [id number] 00:00:00* Test Item Value Reference Range Interpretation Comme nts TSH, THIRD GENERATION (test code = 2821) 1.070 UIU/ML [id number] 00:00:00* Test Item Value Reference Range Interpretation Comme nts TSH, THIRD GENERATION (test code = 2821) 1.070 UIU/ML COMPREHENSIVE METABOLIC [id number] 00:00:00* Test Item Value Reference Range Interpretation Comme nts GLUCOSE (test code = 2217) 229 MG/DL BUN (test code = 2208) 12 MG/DL CREATININE (test code = 2214) 0.70 MG/DL eGFR AMER. (test cod e = 75840) 119 ML/MIN/1.73 eGFR NON- AMER. (test code = 37381) 102 ML/MIN/1.73 CALC BUN/CREAT (test code = 2235) 17 RATIO SODIUM (test code = 2231) 141 MEQ/L POTASSIUM (test code = 2228) 4.5 MEQ/L CHLORIDE (test code = 2215) 103 MEQ/L CARBON DIOXIDE (test code = 2206) 27 MEQ/L CALCIUM (test code = 2209) 9.5 MG/DL PROTEIN, TOTAL (test code = 2229) 7.2 G/DL ALBUMIN (test code = 2201) 4.2 G/DL CALC GLOBULIN (test code = 2240) 3.0 G/DL CALC A/G RATIO (test code = 2234) 1.4 RATIO BILIRUBIN, TOTAL (test code = 2207) 0.7 MG/DL ALKALINE PHOSPHATASE (test code = 2204) 129 U/L AST (test code = 2218) 10 U/L ALT (test code = 2219) 12 U/L COMPREHENSIVE METABOLIC [id number] 00:00:00* Test Item Value Reference Range Interpretation Comme nts GLUCOSE (test code = 2217) 229 MG/DL BUN (test code = 2208) 12 MG/DL CREATININE (test code = 2214) 0.70 MG/DL eGFR AMER. (test cod e = 26685) 119 ML/MIN/1.73 eGFR NON- AMER. (test code = 24847) 102 ML/MIN/1.73 CALC BUN/CREAT (test code = 2235) 17 RATIO SODIUM (test code = 2231) 141 MEQ/L POTASSIUM (test code = 2228) 4.5 MEQ/L CHLORIDE (test code = 2215) 103 MEQ/L CARBON DIOXIDE (test code = 2206) 27 MEQ/L CALCIUM (test code = 2209) 9.5 MG/DL PROTEIN, TOTAL (test code = 2229) 7.2 G/DL ALBUMIN (test code = 2201) 4.2 G/DL CALC GLOBULIN (test code = 2240) 3.0 G/DL CALC A/G RATIO (test code = 2234) 1.4 RATIO BILIRUBIN, TOTAL (test code = 220) 0.7 MG/DL ALKALINE PHOSPHATASE (test code = 2204) 129 U/L AST (test code = 2218) 10 U/L ALT (test code = 2219) 12 U/L LIPID [id number] 00:00:00* Test Item Value Reference Range Interpretation Comme nts CHOLESTEROL (test code = 2210) 196 MG/DL TRIGLYCERIDES (test code = 2232) 70 MG/DL HDL CHOLESTEROL (test code = 2220) 51 MG/DL CALC LDL CHOL (test code = 2237) 131 MG/DL RISK RATIO LDL/HDL (test cod e = 2238) 2.57 RATIO LIPID [id number] 00:00:00* Test Item Value Reference Range Interpretation Comme nts CHOLESTEROL (test code = 2210) 196 MG/DL TRIGLYCERIDES (test code = 2232) 70 MG/DL HDL CHOLESTEROL (test code = 2220) 51 MG/DL CALC LDL CHOL (test code = 2237) 131 MG/DL RISK RATIO LDL/HDL (test cod e = 2238) 2.57 RATIO CBC W/AUTO [id number] 00:00:00* Test Item Value Reference Range Interpretation Comme nts WBC (test code = 1001) 6.5 K/UL RBC (test code = 1002) 5.00 M/UL HEMOGLOBIN (test code = 1003) 14.6 G/DL HEMATOCRIT (test code = 1004) 43.2 % MCV (test code = 1005) 86.4 fL MCH (test code = 1006) 29.2 PG MCHC (test code = 1007) 33.8 G/DL RDW (test code = 1038) 11.9 % NEUTROPHILS (test code = 1008) 66.5 % LYMPHOCYTES (test code = 1010) 26.0 % MONOCYTES (test code = 1011) 6.0 % EOSINOPHILS (test code = 1012) 1.2 % BASOPHILS (test code = 1013) 0.3 % PLATELET COUNT (test code = 1015) 290 K/UL CBC W/AUTO [id number] 00:00:00* Test Item Value Reference Range Interpretation Comme nts WBC (test code = 1001) 6.5 K/UL RBC (test code = 1002) 5.00 M/UL HEMOGLOBIN (test code = 1003) 14.6 G/DL HEMATOCRIT (test code = 1004) 43.2 % MCV (test code = 1005) 86.4 fL MCH (test code = 1006) 29.2 PG MCHC (test code = 1007) 33.8 G/DL RDW (test code = 1038) 11.9 % NEUTROPHILS (test code = 1008) 66.5 % LYMPHOCYTES (test code = 1010) 26.0 % MONOCYTES (test code = 1011) 6.0 % EOSINOPHILS (test code = 1012) 1.2 % BASOPHILS (test code = 1013) 0.3 % PLATELET COUNT (test code = 1015) 290 K/UL CBC W/AUTO [id number] 00:00:00* Test Item Value Reference Range Interpretation Comme nts WBC (test code = 1001) 6.5 K/UL RBC (test code = 1002) 5.00 M/UL HEMOGLOBIN (test code = 1003) 14.6 G/DL HEMATOCRIT (test code = 1004) 43.2 % MCV (test code = 1005) 86.4 fL MCH (test code = 1006) 29.2 PG MCHC (test code = 1007) 33.8 G/DL RDW (test code = 1038) 11.9 % NEUTROPHILS (test code = 1008) 66.5 % LYMPHOCYTES (test code = 1010) 26.0 % MONOCYTES (test code = 1011) 6.0 % EOSINOPHILS (test code = 1012) 1.2 % BASOPHILS (test code = 1013) 0.3 % PLATELET COUNT (test code = 1015) 290 K/UL HEMOGLOBIN [id number] 00:00:00* Test Item Value Reference Range Interpretation Comme nts HEMOGLOBIN A1c (test code = 19516) 8.3 % HEMOGLOBIN [id number] 00:00:00* Test Item Value Reference Range Interpretation Comme nts HEMOGLOBIN A1c (test code = 05277) 8.3 % HEMOGLOBIN [id number] 00:00:00* Test Item Value Reference Range Interpretation Comme nts HEMOGLOBIN A1c (test code = 31837) 8.3 % [id number] 00:00:00* Test Item Value Reference Range Interpretation Comme nts TSH, THIRD GENERATION (test code = 2821) 1.070 UIU/ML [id number] 00:00:00* Test Item Value Reference Range Interpretation Comme nts TSH, THIRD GENERATION (test code = 2821) 1.070 UIU/ML [id number] 00:00:00* Test Item Value Reference Range Interpretation Comme nts TSH, THIRD GENERATION (test code = 2821) 1.070 UIU/ML COMPREHENSIVE METABOLIC [id number] 00:00:00* Test Item Value Reference Range Interpretation Comme nts GLUCOSE (test code = 2217) 229 MG/DL BUN (test code = 2208) 12 MG/DL CREATININE (test code = 2214) 0.70 MG/DL eGFR AMER. (test cod e = 47142) 119 ML/MIN/1.73 eGFR NON- AMER. (test code = 36125) 102 ML/MIN/1.73 CALC BUN/CREAT (test code = 2235) 17 RATIO SODIUM (test code = 2231) 141 MEQ/L POTASSIUM (test code = 2228) 4.5 MEQ/L CHLORIDE (test code = 2215) 103 MEQ/L CARBON DIOXIDE (test code = 2206) 27 MEQ/L CALCIUM (test code = 2209) 9.5 MG/DL PROTEIN, TOTAL (test code = 2229) 7.2 G/DL ALBUMIN (test code = 2201) 4.2 G/DL CALC GLOBULIN (test code = 2240) 3.0 G/DL CALC A/G RATIO (test code = 2234) 1.4 RATIO BILIRUBIN, TOTAL (test code = 2207) 0.7 MG/DL ALKALINE PHOSPHATASE (test code = 2204) 129 U/L AST (test code = 2218) 10 U/L ALT (test code = 2219) 12 U/L COMPREHENSIVE METABOLIC [id number] 00:00:00* Test Item Value Reference Range Interpretation Comme nts GLUCOSE (test code = 2217) 229 MG/DL BUN (test code = 2208) 12 MG/DL CREATININE (test code = 2214) 0.70 MG/DL eGFR AMER. (test cod e = 24840) 119 ML/MIN/1.73 eGFR NON- AMER. (test code = 08508) 102 ML/MIN/1.73 CALC BUN/CREAT (test code = 2235) 17 RATIO SODIUM (test code = 2231) 141 MEQ/L POTASSIUM (test code = 2228) 4.5 MEQ/L CHLORIDE (test code = 2215) 103 MEQ/L CARBON DIOXIDE (test code = 2206) 27 MEQ/L CALCIUM (test code = 2209) 9.5 MG/DL PROTEIN, TOTAL (test code = 2229) 7.2 G/DL ALBUMIN (test code = 2201) 4.2 G/DL CALC GLOBULIN (test code = 2240) 3.0 G/DL CALC A/G RATIO (test code = 2234) 1.4 RATIO BILIRUBIN, TOTAL (test code = 2207) 0.7 MG/DL ALKALINE PHOSPHATASE (test code = 2204) 129 U/L AST (test code = 2218) 10 U/L ALT (test code = 2219) 12 U/L
[2023-09-13] MEDS ORDERED: NA CHLORIDE 0.9% 1,000 ML ONE (00:28)
[2023-09-13] MEDS ORDERED: ONDANSETRON 4 MG/2 ML VIAL ONE (00:28)
[2023-09-13 00:38] LABS: Lymphocytes % 27.8 % (15.3-44.8); MCV 86.3 fL (80-100); MPV 7.3 fL (7.6-11.3); Platelets 323 thou/uL (152-406); RBC Red Blood Cell Count 4.99 M/uL (3.86-4.86)
[2023-09-13 01:04] LABS: Albumin 3.5 g/dL (3.4-5.0); BETA HYDROXYBUTYRATE 1.2 mmol/L (0.02-0.27); Bilirubin Total 0.5 mg/dL (0.2-1.0); Potassium 3.3 mEq/L (3.5-5.1); Protein, Total 8.2 g/dL (6.4-8.2); Troponin High Sensitivity 4.7 pg/mL (<58.9)
[2023-09-13] MEDS ORDERED: INSULIN REGULAR (HUMAN) 100 UNIT/ML ONE (01:31)
[2023-09-13 02:17] LABS: Urine Bilirubin NEGATIVE (Negative); Urine Blood Negative (Negative); Urine Clarity Clear (Clear); Urine Color Colorless (Yellow); Urine Glucose 4+ (Over) (Negative); Urine Protein NEGATIVE (Negative); Urine Urobilinogen Normal (Normal); Urine pH 6.5 (5.0-7.0)
[2023-09-13 03:40] LABS: Potassium 3.8 mEq/L (3.5-5.1)
--- NOTE | 2023-09-13 03:55 | ER ---
Nurse's Notes [facility] Name: Carmen Stahl Age: 53 yrs Sex: Female : 1970 Arrival Date: 09/12/2023 Time: 23:16 Bed 5 Private MD: Diagnosis: Chest pain, unspecified;Ileus, unspecified;Hyperglycemia, unspecified;Dehydration Presentation: 09/12 23:37 Coronavirus screen: Client denies travel out of the [place] in the last 14 days. Ebola km8 Screen: No symptoms or risks identified at this time. 23:37 Method Of Arrival: Ambulatory 8 23:37 Chief complaint: Patient states: diarrhea, nausea, and chest burning for 3 days; pt has km8 been off her insulin for 4 months. Initial Sepsis Screen: Does the patient meet any 2 criteria? RR > 20 per min. HR > 90 bpm. Does the patient have a suspected source of infection? No. Patient's initial sepsis screen is negative. Risk Assessment: Do you want to hurt yourself or someone else? Patient reports no desire to harm self or others. Onset of symptoms was September 09, 2023. 23:37 Acuity: RIA 2 km8 Triage Assessment: 23:43 General: Appears ill, Behavior is cooperative, appropriate for age, anxious. Pain: km8 Denies pain. EENT: No signs and/or symptoms were reported regarding the EENT system. Neuro: Sidhu Agitation-Sedation Scale (RASS): 0 - Alert and Calm Level of Consciousness is awake, alert, obeys commands, Oriented to person, place, time, situation. Cardiovascular: Reports chest pain, Capillary refill < 3 seconds Patient's skin is warm and dry. Respiratory: Airway is patent Respiratory effort is even, labored, Respiratory pattern is regular, symmetrical. GI: Reports upper abdominal pain, diarrhea, nausea. : No signs and/or symptoms were reported regarding the genitourinary system. Derm: No signs and/or symptoms reported regarding the dermatologic system. Skin is intact, Skin is dry, Skin is normal, Skin temperature is warm. Musculoskeletal: No signs and/or symptoms reported regarding the musculoskeletal system. Circulation, motion, and sensation intact. Range of motion: intact in all extremities. 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 Flu vaccine is not up to date. - Social history:: Smoking status: Patient denies any tobacco usage or history of. Patient/guardian denies using alcohol, street drugs. - Family history:: not pertinent. - Hospitalizations: : No recent hospitalization is reported. Screenin/15 02:53 [facility] ED Fall Risk Assessment (Adult) History of falling in the last 3 months, vc1 including since admission No falls in past 3 months (0 pts) Confusion or Disorientation No (0 pts) Intoxicated or Sedated No (0 pts) Impaired Gait No (0 pts) Mobility Assist Device Used No (0 pt) Altered Elimination No (0 pt) Score/Fall Risk Level 0 - 2 = Low Risk Oriented to surroundings, Maintained a safe environment, Educated pt \T\ family on fall prevention, incl call for assistance when getting out of bed. Abuse screen: Denies threats or abuse. Nutritional screening: No deficits noted. Tuberculosis screening: No symptoms or risk factors identified. Assessment: 00:00 General: Appears uncomfortable, Behavior is cooperative, anxious, restless. Pain: ha1 Complains of pain in body ache Pain does not radiate. Pain currently is 7 out of 10 on a pain scale. Quality of pain is described as aching. Neuro: Level of Consciousness is awake, alert, obeys commands, Oriented to person, place, time, situation, Reports dizziness, when standing. Cardiovascular: Capillary refill < 3 seconds Patient's skin is warm and dry. Respiratory: Airway is patent Respiratory effort is even, unlabored, Respiratory pattern is regular, symmetrical. GI: Abdomen is flat, non-distended, Bowel sounds present X 4 quads. Reports epigastric pain, nausea. Derm: Skin is pink, warm \T\ dry. Musculoskeletal: Circulation, motion, and sensation intact. Range of motion: intact in all extremities. 01:00 Reassessment: Patient and/or family updated on plan of care and expected duration. Pain ha1 level reassessed. Patient is alert, oriented x 3, equal unlabored respirations, skin warm/dry/pink. 02:03 Reassessment: Patient and/or family updated on plan of care and expected duration. Pain ha1 level reassessed. Patient is alert, oriented x 3, equal unlabored respirations, skin warm/dry/pink. Patient states feeling better. Patient states symptoms have improved. 02:56 Reassessment: No changes from previously documented assessment. Patient and/or family vc1 updated on plan of care and expected duration. Pain level reassessed. Patient is alert, oriented x 3, equal unlabored respirations, skin warm/dry/pink. Patient denies pain at this time. Patient states feeling better. Patient states symptoms have improved. 04:04 Reassessment: Patient and/or family updated on plan of care and expected duration. Pain vc1 level reassessed. Patient is alert, oriented x 3, equal unlabored respirations, skin warm/dry/pink. Patient denies pain at this time. Patient states feeling better. Patient states symptoms have improved. Vital Signs: 09/12 23:37 BP 203 / 119; Pulse 105; Resp 22; Temp 98(O); Pulse Ox 100% on R/A; Weight 70.31 kg 8 (R); Height 5 ft. 4 in. (R); Pain 0/10; 09/13 00:00 BP 176 / 73; Pulse 98; Resp 17 S; Pulse Ox 100% on R/A; ha1 02:03 BP 162 / 78; Pulse 80; Resp 17 S; Pulse Ox 99% on R/A; ha1 02:53 BP 114 / 74; Pulse 91; Resp 15; Pulse Ox 100% ; vc1 04:04 BP 146 / 79; Pulse 88; Resp 14; Pulse Ox 98% ; vc1 09/12 23:37 Body Mass Index 26.61 (70.31 kg, 162.56 cm) [facility] 09/12 23:37 Pain Scale: Adult [facility] ED Course: 09/12 23:17 Patient arrived in ED. gm2 23:35 Augie Ramachandran MD is Attending Physician. rn 23:37 Arm band placed on. km8 23:43 Triage completed. 8 09/13 00:10 Inserted saline lock: 20 gauge in right antecubital area, using aseptic technique. ha1 Blood collected. 01:32 Chest Single View In Process Unspecified. EDMS 02:00 Patient has correct armband on for positive identification. Bed in low position. Pulse vc1 ox on. NIBP on. 02:19 Angio Aorta For Dissection In Process Unspecified. EDMS 04:03 Deedee Valladares, RN is Primary Nurse. vc1 04:26 No provider procedures requiring assistance completed. IV discontinued, intact, ha1 bleeding controlled, No redness/swelling at site. Pressure dressing applied. 04:27 Provided Education on: medication administration following up with PCP. ha1 Administered Medications: 00:20 Drug: NS 0.9% IV 1000 ml IV at 1000 ml once Route: IV; Rate: 1000 ml; Site: right ha1 antecubital; 04:28 Follow up: Response: No adverse reaction; IV Status: Completed infusion; IV Intake: ha1 1000ml 00:20 Drug: Ondansetron IVP 4 mg IVP once; over 2 minutes Route: IVP; Site: right antecubital;ha1 01:00 Follow up: Response: No adverse reaction; Nausea is decreased ha1 01:50 Drug: Insulin Regular Human Sub-Q 10 units Sub-Q once {Co-Signature: vc1 (clari Valladares RN).} Route: Sub-Q; Site: right lower abdomen; 03:00 Follow up: Response: No adverse reaction ha1 Medication: 02:54 VIS not applicable for this client. ha1 Intake: 04:28 IV: 1000ml; Total: 1000ml. ha1 Outcome: 03:54 Discharge ordered by . rn 04:26 Discharged to home ambulatory, with family, ha1 04:26 Condition: stable 04:26 Discharge instructions given to patient, Instructed on discharge instructions, follow up and referral plans. medication usage, Demonstrated understanding of instructions, follow-up care, medications, Prescriptions given X 3, 04:29 Patient left the ED. ha1 Signatures: Dispatcher [employer] EDMN Augie Ramachandran MD MD rn Calcote, Vanessa, RN RN vc1 Bonita Murry RN RN Hafsa Merrill 2 Ashley Canales RN RN km8 Deedee Valladares RN vc1 Corrections: (The following items were deleted from the chart) 02:55 00:00 Neuro: Level of Consciousness is awake, alert, obeys commands, Oriented to ha1 person, place, time, situation, ha1
--- NOTE | 2023-09-13 03:55 | EDPHYS ---
Physician Documentation [facility] Name: Carmen Stahl Age: 53 yrs Sex: Female : 1970 Arrival Date: 09/12/2023 Time: 23:16 Bed 5 Private MD: ED Physician Augie Ramachandran HPI: 09/12 23:52 This 53 yrs old Female presents to ER via Ambulatory with complaints of CHEST FEELS rn LIKE BURNING, Nausea, Near Syncope. 23:52 The patient presents to the emergency department with nausea, vomiting, diarrhea. rn Onset: The symptoms/episode began/occurred 3 day(s) ago. Possible causes: unknown. The symptoms are aggravated by nothing. The symptoms are alleviated by nothing. Associated signs and symptoms: Pertinent positives: diarrhea, nausea, vomiting, Pertinent negatives: fever, GI bleeding. Severity of symptoms: At their worst the symptoms were moderate in the emergency department the symptoms are unchanged. The patient has not experienced similar symptoms in the past. The patient has not recently seen a physician. Patient reports generalized malaise and just does not feel well over the last 3 days. Reports intermittent chest pain, feels like something sitting on her chest, nausea, diarrhea, rapid breathing. Reports is supposed to take insulin but has been out of all her medication for 4 months due to monetary problems. No fever. No trauma.. 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 Flu vaccine is not up to date. - Social history:: Smoking status: Patient denies any tobacco usage or history of. Patient/guardian denies using alcohol, street drugs. - Family history:: not pertinent. - Hospitalizations: : No recent hospitalization is reported. ROS: 23:54 Constitutional: Negative for fever, chills, and weight loss, Neck: Negative for injury, rn pain, and swelling, Cardiovascular: Positive for chest pain Respiratory: Positive for shortness of breath Abdomen/GI: Today for vomiting and diarrhea. MS/Extremity: Negative for injury and deformity, Skin: Negative for injury, rash, and discoloration, Neuro: Positive for generalized weakness and malaise. Exam: 23:54 Constitutional: This is a well developed, well nourished patient who is awake, alert, rn rapid breathing noted, covered in blanket Head/Face: Normocephalic, atraumatic. Eyes: Pupils equal round and reactive to light, extra-ocular motions intact. ENT: Dry mucous membranes, no stridor Neck: Trachea midline, no masses. No Meningismus. Cardiovascular: Tachycardic, regular. No pulse deficits. Respiratory: Mild tachypnea with deep breaths. No wheezing Abdomen/GI: Soft, non-tender Skin: Warm, dry MS/ Extremity: Pulses equal, no cyanosis. Neuro: Awake and alert, GCS 15, oriented to person, place, time, and situation. Cranial nerves II-XII grossly intact. Motor strength 5/5 in all extremities. Sensory grossly intact. Cerebellar exam normal. Normal gait. 09/13 00:47 ECG was reviewed by the Attending Physician. rn Vital Signs: 09/12 23:37 BP 203 / 119; Pulse 105; Resp 22; Temp 98(O); Pulse Ox 100% on R/A; Weight 70.31 kg km8 (R); Height 5 ft. 4 in. (R); Pain 0/10; 09/13 00:00 BP 176 / 73; Pulse 98; Resp 17 S; Pulse Ox 100% on R/A; ha1 02:03 BP 162 / 78; Pulse 80; Resp 17 S; Pulse Ox 99% on R/A; ha1 02:53 BP 114 / 74; Pulse 91; Resp 15; Pulse Ox 100% ; vc1 04:04 BP 146 / 79; Pulse 88; Resp 14; Pulse Ox 98% ; vc1 09/12 23:37 Body Mass Index 26.61 (70.31 kg, 162.56 cm) km8 09/12 23:37 Pain Scale: Adult km8 MDM: 09/12 23:52 Patient medically screened. rn 09/13 00:05 ED course: Blood cultures and lactate ordered, orders are not going through . rn 03:51 Differential diagnosis: Nonspecific abd pain, gastritis, cholecystitis, pancreatitis, rn viral gastroenteritis, gastroenteritis. 03:52 Data reviewed: vital signs, nurses notes, lab test result(s), radiologic studies, CT rn scan, and as a result, I will admit patient. Consideration of Admission/Observation Escalation of care including admission/observation considered. Patient declines admission. States she has to work, states she cannot afford not to work and stay in the hospital. Understands the risks of not being admitted. Also understands the need to follow-up for medication management for her diabetes and hypertension.. Care significantly affected by the following chronic conditions: Diabetes, Hypertension. Counseling: I had a detailed discussion with the patient and/or guardian regarding the historical points, exam findings, and any diagnostic results supporting the discharge/admit diagnosis, lab results, radiology results, the need for further work-up and treatment in the hospital. Response to treatment: the patient's symptoms have markedly improved after treatment. Refusal of service: The patient/guardian displays adequate decision making capability and despite a detailed discussion of alternatives, benefits, risks, and consequences refuses: Admission to the hospital for further work-up and treatment. ED course: I recommended admission to the hospital for ileus and hyperglycemia, patient feels much better and states cannot be admitted, needs to go to work to make money. Understands risks of not being admitted and need for urgent follow-up. Return precautions given.. 09/12 23:54 Order name: Glucose, Ancillary Testing; Complete Time: 00:03 [facility] 09/13 00:05 Order name: Blood Culture Adult (2) 09/13 00:05 Order name: Lactate w/ 2H reflex if indic.; Complete Time: 02: 09/13 00:23 Order name: Comprehensive Metabolic Panel; Complete Time: 01: [facility] 09/13 00:23 Order name: Troponin High Sensitivity; Complete Time: 01: [facility] 09/13 00:23 Order name: NT PRO-BNP; Complete Time: 01: [facility] 09/13 00:23 Order name: BETA HYDROXYBUTYRATE; Complete Time: 01: [facility] 09/13 00:23 Order name: Lipase; Complete Time: 01: [facility] 09/13 00:24 Order name: CBC with Automated Diff; Complete Time: 01:02 [facility] 09/13 00:24 Order name: Urinalysis w/ reflexes; Complete Time: 02:26 [facility] 09/13 02:54 Order name: BMP; Complete Time: 03:43 rn 09/13 00:28 Order name: Angio Aorta For Dissection EDMS 09/13 00:45 Order name: Chest Single View EDSD 09/12 23:44 Order name: EKG; Complete Time: 01:41 rn 09/12 23:44 Order name: Cardiac monitoring; Complete Time: 00:07 rn 09/12 23:44 Order name: EKG - Nurse/Tech; Complete Time: 00:24 rn 09/12 23:44 Order name: IV Saline Lock; Complete Time: 00: rn 09/12 23:44 Order name: Labs collected and sent; Complete Time: 00: rn 09/12 23:44 Order name: O2 Per Protocol; Complete Time: 00: rn 09/12 23:44 Order name: O2 Sat Monitoring; Complete Time: 00: rn 09/12 23:44 Order name: Glucose Level; Complete Time: 23:57 rn EC:47 Rate is 99 beats/min. Rhythm is regular. QRS [place] is Normal. NE interval is normal. QRS rn interval is normal. QT interval is prolonged at 485 msec. No Q waves. T waves are Normal. No ST changes noted. Clinical impression: NSR w/ Non-specific ST/T Changes and Prolonged QT. Interpreted by me. Reviewed by me. Administered Medications: 00:20 Drug: NS 0.9% IV 1000 ml IV at 1000 ml once Route: IV; Rate: 1000 ml; Site: right ha1 antecubital; 04:28 Follow up: Response: No adverse reaction; IV Status: Completed infusion; IV Intake: ha1 1000ml 00:20 Drug: Ondansetron IVP 4 mg IVP once; over 2 minutes Route: IVP; Site: right antecubital;ha1 01:00 Follow up: Response: No adverse reaction; Nausea is decreased ha1 01:50 Drug: Insulin Regular Human Sub-Q 10 units Sub-Q once {Co-Signature: vc1 (clari Valladares RN).} Route: Sub-Q; Site: right lower abdomen; 03:00 Follow up: Response: No adverse reaction ha1 Disposition Summary: 09/13/23 03:54 Discharge Ordered Notes: Location: Home rn Problem: new rn Symptoms: have improved rn Condition: Stable rn Diagnosis - Chest pain, unspecified rn - Ileus, unspecified rn - Hyperglycemia, unspecified rn - Dehydration rn Followup: rn - With: Private Physician - When: As needed - Reason: Recheck today's complaints, Re-evaluation by your physician Discharge Instructions: - Discharge Summary Sheet rn - Nonspecific Chest Pain, Adult rn - Dehydration, Adult rn - Hyperglycemia rn - Hypertension, Adult rn - Blood Glucose Monitoring, Adult rn Forms: - Medication Reconciliation Form rn - Thank You Letter rn - Antibiotic rn cardiovascular - Prescription Opioid Use rn - Patient Portal Instructions rn - Leadership Thank You Letter rn Prescriptions: - ondansetron 4 mg Oral Tablet,disintegrating - take 1 tablet ORAL route every 8 hours As needed; 10 tablet; Refills: 0, rn Product Selection Permitted - Flagyl 500 mg Oral Tablet - take 1 tablet ORAL route every 12 hours for 7 days; 14 tablet; Refills: 0, rn Product Selection Permitted - Cipro 500 mg Oral Tablet - take 1 tablet ORAL route every 12 hours for 7 days; 14 tablet; Refills: 0, rn Product Selection Permitted Signatures: Dispatcher [employer] EDSD Augie Ramachandran MD MD rn Ayala, Heidy RN RN ha1 Ashley Canales RN RN km8 Deedee Valladares RN vc1 Corrections: (The following items were deleted from the chart) 00:28 00:21 Angio Aorta For Dissection ordered. EDMS EDMS 01:51 01:41 Chest Single View+RAD.RAD.BRZ ordered. EDMS EDMS 01:52 01:41 CBC+H.LAB.BRZ ordered. EDMS EDMS 01:52 01:41 PROBNP+C.LAB.BRZ ordered. EDMS EDMS 01:52 01:41 Troponin High Sensitivity+C.LAB.BRZ ordered. EDMS EDMS 01:52 01:41 COMPREHENSIVE METABOLIC PANEL+C.LAB.BRZ ordered. EDMS EDMS 01:52 01:41 LIPASE+C.LAB.BRZ ordered. EDMS EDMS 01:52 01:41 Urinalysis+U.LAB.BRZ ordered. EDMS EDMS 02:18 01:41 Abdomen Pelvis W Con+CT.RAD.BRZ ordered. EDMS EDMS 02:18 01:42 Angio Aorta For Dissection+CT.RAD.BRZ ordered. EDMS EDMS 04:29 09/12 23:53 BETA HYDROXYBUTYRATE+C.LAB.BRZ ordered. rn ha1
[2023-09-13 05:04] VITALS: TEMP 98
[2023-09-13 05:14] VITALS: BP 146/79; O2SAT 98
--- NOTE | 2023-09-13 17:45 | RAD REPORT ---
EXAM DESCRIPTION: Angio Aorta For Dissection CLINICAL HISTORY: Chest burning/diarrhea/nausea for 3 days TECHNIQUE: Contiguous axial images obtained through the chest, abdomen and pelvis during angiographi c phase following the uneventful administration of IV contrast. Sagittal and coronal reformatted imag es were provided. 3-D MIP reformatted images were provided. This exam was performed according to our departmental dose-optimization program, which includes autom ated exposure control, adjustment of the mA and/or kV according to patient size and/or use of iterati ve reconstruction technique. COMPARISON: No prior exams provided for comparison. FINDINGS: Thoracic aorta: No dissection or aneurysmal dilatation. Lungs: No focal consolidation. Airways are patent. Pleura: No effusion. No pneumothorax. Heart and pericardium: The heart is normal in size. No pericardial effusion. Mediastinum and agustin: No pathologically enlarged lymph nodes. Thyroid nodules, the largest measuring approximately 8 mm. No follow-up imaging recommended. Lower neck and chest wall: Unremarkable Vessels: No central pulmonary emboli.. No thoracic aortic aneurysm. Bones: Unremarkable Abdominal aorta: No aneurysm. No dissection. Celiac trunk: No significant stenosis or occlusion. SMA: No significant stenosis or occlusion. KG: No significant stenosis or occlusion. Renal arteries: No significant stenosis or occlusion. Iliac arteries: No significant stenosis or occlusion. 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 Liver: Mild diffuse fatty infiltration of the liver. Gallbladder and biliary system: Unremarkable Pancreas: Unremarkable Spleen: Unremarkable Adrenal: Unremarkable Kidneys: Normal renal cortical enhancement. No calculi. No hydronephrosis. GI: There is moderate dilatation of the terminal ileum with fecalization, which may represent ileus o r small bowel stasis and dysmotility. No small bowel mucosal thickening. Appendix: No findings to suggest acute appendicitis. Urinary bladder: Unremarkable Reproductive: Unremarkable as visualized Lymph nodes: No pathologically enlarged lymph nodes. Peritoneum: No focal fluid collection. No free air. Abdominal wall: Unremarkable Bones: Prominent degenerative disc disease at L4-L5 IMPRESSION: 1. No thoracic or abdominal aortic dissection or aneurysmal dilatation.. 2. Moderate dilatation of the terminal ileum with fecalization, which may represent ileus or small bowel stasis and dysmotility. No evidence of high-grade small bowel obstruction. 3. Mild diffuse fatty infiltration of the liver. Electronically signed by: Wolfgang Byrnes MD 09/13/2023 02:41 AM NATIONAL [employer] ANALYST Due to temporary technical issues with the PACS/Fluency reporting system, reports are being signed by the in house radiologists without review as a courtesy to insure prompt reporting. The interpreting radiologist is fully responsible for the content of the report.
--- NOTE | 2023-09-13 17:55 | RAD REPORT ---
EXAM DESCRIPTION: Chest Single View CLINICAL HISTORY: CHEST PAIN COMPARISON: None TECHNIQUE: Single AP view of the chest. FINDINGS: Lung volumes adequate. Cardiac silhouette is normal in size. No pneumothorax. No large pleural effusion. No focal consolidation. No acute bony finding. IMPRESSION: No evidence of acute cardiopulmonary disease. Electronically signed by: Debra Pacheco MD 09/13/2023 01:39 AM MECHANICAL DRAFTER Due to temporary technical issues with the PACS/Fluency reporting system, reports are being signed by the in house radiologists without review as a courtesy to insure prompt reporting. The interpreting radiologist is fully responsible for the content of the report.
--- NOTE | 2023-09-16 12:35 | EKG ---
Test Date: 2023-09-13 Test Time: 00:19:45 Filing Machine Operator: NILO MEASUREMENT RESULTS: Intervals: Rate: 99 ID: [id number] QRSD: 90 QT: 378 QTc: 485 [place]: P: 42 ID: [id number] QRS: 18 T: 19 INTERPRETIVE STATEMENTS: Normal sinus rhythm Prolonged QT Abnormal ECG Compared to ECG 05/12/2021 12:57:49 Prolonged QT interval now present Sinus tachycardia no longer present Myocardial infarct finding no longer present Electronically Signed On 09-16-23 12:28:07 ORACLE MANAGER by Delgado Mueller
== END 2023-09-13 04:29 | disposition home or self-care (01) ==
LOC: ER 23:16
DX: R07.89 Other chest pain (principal); K56.7 Ileus, unspecified; E86.0 Dehydration; E11.65 Type 2 diabetes mellitus with hyperglycemia
CPT/HCPCS: 36415; 71045; 71275; 74175; 80048; 80053; 81003; 82010; 82947; 83605; 83690; 83880; 84484; 85025; 87040; 93005; 96361; 96372; 96374; 99284; J1815; J2405; J7030; Q9967

== ENCOUNTER 2024-07-18 09:22 | Emergency (ER) | payer SELFPAY ==
--- OUTSIDE RECORDS SUMMARY | 2024-07-18 09:26 | XMS REPORT | Continuity of Care Document ---
Author Name Unknown Address [address] [place] [address] [facility] thconnect Address [address] [place] [address] Care Team Providers Care Specimen Transporter Name Role Phone PCP, PATIENT DOES NOT HAVE A Primary Care Physic jose Unavailable JAKOB GARCÍA Attending Clinician Unavailable Jakob García MD Attending Clinician [phone] A_[email or web address] Attending Clinician Unavailable JAKOB GARCÍA Admitting Clinician Unavailable Earline Admitting Clinician Unavailable Payers Payer Name Policy Type Policy Number Effective Date Expirati on Date Source [employer] (EPO) [id number] 2016 00:00:00 Problems Condition Name Condition Details [...] [facility] Lethargy Lethargy Problem Active 411 00:00: 00 [facility] Encounter for routine gynecologi orestes examinatio n Encounter for routine gynecologi orestes examinatio n Disease Active 03-04 00:00: 00 Overview: Formattin g of this note might be different from the original. 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 [facility] Tubal ligation status Tubal ligation status Disease Active 03-04 00:00: 00 [facility] Endometrio sis Endometrio sis Disease Active 03-04 00:00: 00 [facility] Menorrhagi a Menorrhagi a Disease Active 03-04 00:00: 00 [facility] Dysmenorrh ea Dysmenorrh ea Disease Active 03-04 00:00: 00 [facility] Onychomyco sis Onychomyco sis Problem [facility] Candidiasi s Candidiasi s Problem Active [facility] Diabetes mellitus Diabetes Mellitus Problem Active [facility] Type 2 diabetes mellitus Type 2 Diabetes Mellitus Problem Active [facility] Hyperchole sterolemia Hyperchole sterolemia Problem Active [facility] Constipati on Constipati on Problem Active [facility] Pain in pelvis Pain in Pelvis Problem Active [facility] Low back pain Low Back Pain Problem Active [facility] Left lower quadrant pain Left Lower Quadrant Pain Problem Active [facility] 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 Problem Active [facility] Strain of back muscle Strain of Back Muscle Problem Active [facility] Pain in bilateral legs Pain in Bilateral Legs Problem Active [facility] Allergies, Adverse Reactions, Alerts Allergy Name Allergy Type Status Severity Reaction(s) Onset Date Inactive Date Treating Clinician Comments Source VICTOZA Allergy to substanc e Active Moderate to severe Diarrhea [facility] NO KNOWN ALLERGIE S Drug Class Active [facility] Social History Social Habit Start Date Stop Date Quantity Comments Source Alcohol intake 2014-09-08 00:00:00 2014-09-08 00:00:00 Current non-drinker of alcohol (finding) [facility] Sex Assigned At 1970 00:00:00 1970 00:00:00 [facility] Smoking Status Start Date Stop Date Source Never Smoker [facility] Medications Ordered Medication Name Filled Medication Name Start Date Stop Date Current Medication? Ordering Clinician Indication Dosage Frequency Signature (SIG) Comments Components Source Levemir FlexPen 100 unit/mL (3 mL) solution subcutaneou s insulin pen 03-18 00:00: 00 Yes (3 mL) Naveed Ellsworth Novolin 70-30 FlexPen U-100 Insulin 100 unit/mL (70-30) subcutaneou s 03-18 00:00: 00 Yes unit/mL (70-30) Naveed Ellsworth losartan 25 mg tablet 03-18 00:00: 00 Yes 1mg Naveed Ellsworth TAKE 1 TABLET DAILY. 2022-09 00:00: 00 Yes 25 Naveed Ellsworth TAKE 1 TO 2 TABLETS AT BEDTIME 2022-09 00:00: 00 02-05 00:00 :00 No 25 Naveed Ellsworth 25 UNITS SUBCUTANEOU SLY TWICE DAILY 2022-09 00:00: 00 02-05 00:00 :00 No 100 Naveed Ellsworth INJECT 10 UNITS 4 TIMES A DAY BEFORE MEALS 2022-09 00:00: 00 02-05 00:00 :00 No 100 Naveed Ellsworth 1 TAB EVERY 8 HOURS NEEDED FOR NAUSEA 2022-09 00:00: 00 02-05 00:00 :00 No 4 Naveed Ellsworth TAKE 1 TABLET TWICE DAILY UNTIL FINISHED. 2022-09 00:00: 00 02-05 00:00 :00 No 500 Naveed Ellsworth TAKE 1 TABLET TWICE DAILY. 2023-1 2-15 00:00: 00 02-05 00:00 :00 No 500 Naveed Ellsworth 5 ML NIGHTLY NEEDED. MAY INCREASE BY 5 ML EVERY WEEK UP TO 15 ML NIGHTLY 2022-09 2-15 00:00: 00 02-05 00:00 :00 No 1015 Naveed Ellsworth labetaloL (NORMODYNE) injection 10 mg 03-03 12:45: 00 03-03 12:09 :00 No 10mg 10 mg, Slow IV Push, ONCE, 1 dose, On 03/03/23 at 0745, Routine [facility] FENTanyl PF (SUBLIMAZE (PF)) injection 50 mcg 03-03 12:00: 00 03-03 11:07 :00 No 50ug 50 mcg, Slow IV Push, ONCE, 1 dose, On 03/03/23 at 0700, Routine [facility] iopamidol (ISOVUE 370-500 mL) injection 80 mL 03-03 11:45: 00 03-03 12:00 :00 No [id number] 80mL 80 mL, Intravenou s, ONCE, 1 dose, On 03/03/23 at 0700, Routine [facility] amLODIPine (NORVASC) 5 mg tablet 03-03 00:00: 00 04-03 04:59 :00 No [id number] 5mg Take 1 tablet by mouth in the morning for 30 days. [facility] INJECT 10 UNITS 3 TIMES A DAY BEFORE MEALS 01-15 00:00: 00 02-05 00:00 :00 No 100 Naveed Ellsworth TAKE 1 TABLET DAILY. 01-15 00:00: 00 02-05 00:00 :00 No 25 Naveed Ellsworth TAKE 1 TO 2 TABLETS AT BEDTIME 01-15 00:00: 00 02-05 00:00 :00 No 25 Naveed Ellsworth 25 UNITS SUBCUTANEOU SLY TWICE DAILY 01-15 00:00: 00 02-05 00:00 :00 No 100 Naveed Ellsworth Dose Unknown 2021-09 2-14 00:00: 00 Yes Naveed F Seng Dose Unknown 2021-09 00:00: 00 Yes Naveed F Seng INSERT 1 APPLICATORF UL VAGINALLY AT BEDTIME FOR 7 DAYS DIRECTED 2021-09 00:00: 00 Yes Naveed F Seng Dose Unknown 2021-09 00:00: 00 Yes Naveed F Seng TAKE 1 TABLET NOW AND 1 IN 3 DAYS 2021-09 00:00: 00 02-05 00:00 :00 No Naveed F Seng APPLY SPARINGLY TO AFFECTED AREA(S) 3 TIMES A DAY 2021-09 00:00: 00 02-05 00:00 :00 No Naveed F Seng Dose Unknown 2021-09 00:00: 00 02-05 00:00 :00 No Naveed F Seng Dose Unknown 2021-09 00:00: 00 02-05 00:00 :00 No Naveed F Seng Dose Unknown 2021-09 00:00: 00 02-05 00:00 :00 No Naveed F Seng Dose Unknown 2021-09 00:00: 00 02-05 00:00 :00 No Naveed F Seng Dose Unknown 2021-09 00:00: 00 02-05 00:00 :00 No Naveed F Seng TAKE 1 CAPSULE BY MOUTH DAILY 2021-09 00:00: 00 02-05 00:00 :00 No 250 Naveed F Seng Dose Unknown 2021-09 00:00: 00 No 25 UNITS SUBCUTANEOU SLY TWICE DAILY 2021-09 00:00: 00 02-05 00:00 :00 No 100unit Naveed F Seng INJECT 10 UNITS 3 TIMES A DAY BEFORE MEALS 2021-09 00:00: 00 02-05 00:00 :00 No 100unit Naveed F Seng Dose Unknown 2021-09 00:00: 00 02-05 00:00 :00 No Naveed F Seng TAKE 1 TABLET BY MOUTH EVERY DAY FOR 3 DAYS DIRECTED 2021-09 018 00:00: 00 Yes Naveed F Seng APPLY SPARINGLY TO AFFECTED AREA(S) 3 TIMES A DAY 06-27 00:00: 00 Yes Naveed Ellsworth nystatin 100,000 unit/gram topical cream 06-27 00:00: 00 No 1unit/g reta nystatin 100,000 unit/gram topical cream 06-27 00:00: 00 No 1unit/g reta Dose Unknown 06-21 00:00: 00 Yes Naveed Ellsworth Levemir U-100 Insulin 100 unit/mL subcutaneou s solution 06-21 00:00: 00 Yes 20unit/ mL Naveed Ellsworth Levemir U-100 Insulin 100 unit/mL subcutaneou s solution 06-21 00:00: 00 No 20unit/ mL Dose Unknown 06-21 00:00: 00 No Dose Unknown 06-21 00:00: 00 No Levemir U-100 Insulin 100 unit/mL subcutaneou s solution 06-21 00:00: 00 No 20unit/ mL Dose Unknown 06-19 00:00: 00 Yes Naveed Ellsworth Levemir U-100 Insulin 100 unit/mL subcutaneou s solution 06-19 00:00: 00 Yes 20unit/ mL Naveed Ellsworth Dose Unknown 06-19 00:00: 00 No Levemir U-100 Insulin 100 unit/mL subcutaneou s solution 06-19 00:00: 00 No 20unit/ mL Dose Unknown 06-19 00:00: 00 No Levemir U-100 Insulin 100 unit/mL subcutaneou s solution 06-19 00:00: 00 No 20unit/ mL Dose Unknown 06-09 00:00: 00 Yes Naveed Ellsworth Dose Unknown 06-09 00:00: 00 No Dose Unknown 06-09 00:00: 00 No Novolin 70/30 U-100 Insulin 100 unit/mL subcutaneou s suspension 06-06 00:00: 00 Yes 1unit/m L (70-30) Naveed Ellsworth Dose Unknown 06-06 00:00: 00 Yes Naveed Ellsworth Novolin 70/30 U-100 Insulin 100 unit/mL subcutaneou [...] 42 Yes Take by mouth as needed. [facility] alendronate 70 mg tablet Take 1 tablet every week by oral route. alendronate 70 mg tablet Take 1 tablet every week by oral route. No alendronat e 70 mg tablet Take 1 tablet every week by oral route. [facility] cephalexin 500 mg capsule Take 1 capsule 3 times a day by oral route. cephalexin 500 mg capsule Take 1 capsule 3 times a day by oral route. No 1capsul e(s) TID cephalexin 500 mg capsule Take 1 capsule 3 times a day by oral route. [facility] dicyclomine 20 mg tablet TAKE 1 TABLET BY MOUTH EVERY 6 HOURS NEEDED dicyclomine 20 mg tablet TAKE 1 TABLET BY MOUTH EVERY 6 HOURS NEEDED No dicyclomin e 20 mg tablet TAKE 1 TABLET BY MOUTH EVERY 6 HOURS NEEDED [facility] Novolin N NPH U-100 Insulin isophane 100 unit/mL subcutaneou s susp INJECT 20 UNITS SUBCUTANEOU SLY EVERY MORNING. Novolin N NPH U-100 Insulin isophane 100 unit/mL subcutaneou s susp INJECT 20 UNITS SUBCUTANEOU SLY EVERY MORNING. No Novolin N NPH U-100 Insulin isophane 100 unit/mL subcutaneo us susp INJECT 20 UNITS SUBCUTANEO USLY EVERY MORNING. [facility] Novolin R Regular U-100 Insulin 100 [...] 300 -8 units. check blood sugars TID [facility] Immunizations Ordered Immunization Name Filled Immunization Name Date Status Comments Source Tdap Tdap 2018-06-06 00:00:00 Completed Naveed Ellsworth Tdap 2018-06-06 00:00:00 Completed Tdap 2018-06-06 00:00:00 Completed TDAP 2013-03-04 00:00:00 Completed [facility] TD, NOS 2002-03-04 00:00:00 Completed [facility] Vital Signs Vital Name Observation Time Observation Value Comments S ource Systolic blood pressure 2023-03-03 12:49:26 149 mm[Hg] [facility] Diastolic blood pressure 2023-03-03 12:49:26 81 mm[Hg] [facility] Heart rate 2023-03-03 12:49:26 84 /min [facility] Respiratory rate 2023-03-03 12:49:26 12 /min [facility] Oxygen saturation in Arterial blood by Pulse oximetry 2023-03-03 12:49:26 98 /min [facility] Body temperature 2023-03-03 10:55:00 36.56 Judy [facility] Body height 2023-03-03 10:55:00 160 cm [facility] Body weight 2023-03-03 10:55:00 69.854 kg [facility] BMI 2023-03-03 10:55:00 27.28 kg/m2 [facility] BP Diastolic 2021-05-18 00:00:00 90 mm[Hg] [facility] Height 2021-05-18 00:00:00 63.5 [in_i] [facility] BMI (Body Mass Index) 2021-05-18 00:00:00 26.2 kg/m2 [facility] BP Systolic 2021-05-18 00:00:00 157 mm[Hg] [facility] Body Weight 2021-05-18 00:00:00 2400 [oz_av] [facility] BP Diastolic 2019-11-17 00:00:00 92 mm[Hg] [facility] Height 2019-11-17 00:00:00 63.5 [in_i] [facility] BMI (Body Mass Index) 2019-11-17 00:00:00 30.9 kg/m2 [facility] BP Systolic 2019-11-17 00:00:00 144 mm[Hg] [facility] Body Weight 2019-11-17 00:00:00 2832 [oz_av] [facility] Body Weight 2019-01-21 00:00:00 2848 [oz_av] [facility] BP Diastolic 2024-03-18 16:10:00 74 mm[Hg] Clemente phen F Seng Weight Measured 2024-03-18 16:10:00 155.60 pounds Naveed F Seng Height Measured 2024-03-18 16:10:00 64.00 inches Naveed F Seng Body Temperature 2024-03-18 16:10:00 98.60 degrees Naveed F Seng Heart Rate 2024-03-18 16:10:00 89.00 /min Veronique en F Seng Respiratory Rate 2024-03-18 16:10:00 18.00 /min Naveed F Seng BP Systolic 2024-03-18 16:10:00 119 mm[Hg] Step hen F Seng BP Systolic 2023-09-13 13:43:00 129 mm[Hg] Step hen F Seng BP Diastolic 2023-09-13 13:43:00 84 mm[Hg] Clemente phen F Seng Weight Measured 2023-09-13 13:43:00 151.20 pounds Naveed F Seng Height Measured 2023-09-13 13:43:00 64.00 inches Naveed F Seng Body Temperature 2023-09-13 13:43:00 97.60 degrees Naveed F Seng Heart Rate 2023-09-13 13:43:00 94.00 /min Veronique en F Seng Respiratory Rate 2023-09-13 13:43:00 Naveed F Seng BP Systolic 2023-01-15 13:42:00 148 mm[Hg] Step hen F Seng BP Diastolic 2023-01-15 13:42:00 91 mm[Hg] Clemente phen F Seng Weight Measured 2023-01-15 13:42:00 151.60 pounds Naveed F Seng Height Measured 2023-01-15 13:42:00 64.00 inches Naveed F Seng Body Temperature 2023-01-15 13:42:00 98.20 degrees Naveed F Seng Heart Rate 2023-01-15 13:42:00 96.00 /min Veronique en F Seng Respiratory Rate 2023-01-15 13:42:00 19.00 /min Naveed F Seng BP Systolic 2022-09-05 16:33:00 148 mm[Hg] Step hen F Seng BP Diastolic 2022-09-05 16:33:00 89 mm[Hg] Clemente phen F Seng Weight Measured 2022-09-05 16:33:00 155.80 pounds Naveed F Seng Height Measured 2022-09-05 16:33:00 64.00 inches Naveed F Seng Body Temperature 2022-09-05 16:33:00 98.10 degrees Naveed F Seng Heart Rate 2022-09-05 16:33:00 96.00 /min Veronique en F Seng Respiratory Rate 2022-09-05 16:33:00 17.00 /min Naveed F Seng BP Systolic 2022-07-31 08:40:00 165 mm[Hg] Step hen F Seng BP Diastolic 2022-07-31 08:40:00 81 mm[Hg] Clemente phen F Seng Weight Measured 2022-07-31 08:40:00 147.80 pounds Naveed F Seng Height Measured 2022-07-31 08:40:00 64.00 inches Naveed F Seng Body Temperature 2022-07-31 08:40:00 98.70 degrees Naveed F Seng Heart Rate 2022-07-31 08:40:00 97.00 /min Veronique en F Seng Respiratory Rate 2022-07-31 08:40:00 18.00 /min Naveed F Seng BP Systolic 2022-07-27 16:28:00 141 mm[Hg] Step hen F Seng BP Diastolic 2022-07-27 16:28:00 92 mm[Hg] Clemente phen F Seng Weight Measured 2022-07-27 16:28:00 141.60 pounds Naveed F Seng Height Measured 2022-07-27 16:28:00 64.00 inches Naveed F Seng Body Temperature 2022-07-27 16:28:00 97.90 degrees Naveed F Seng Heart Rate 2022-07-27 16:28:00 94.00 /min Veronique en F Seng Respiratory Rate 2022-07-27 16:28:00 Naveed F Seng BP Systolic 2022-07-18 15:42:00 147 mm[Hg] Step hen F Seng BP Diastolic 2022-07-18 15:42:00 91 mm[Hg] Clemente phen F Seng Weight Measured 2022-07-18 15:42:00 146.80 pounds Naveed F Seng Height Measured 2022-07-18 15:42:00 64.00 inches Naveed F Seng Body Temperature 2022-07-18 15:42:00 98.30 degrees Naveed F Seng Heart Rate 2022-07-18 15:42:00 90.00 /min Veronique en F Seng Respiratory Rate 2022-07-18 15:42:00 Navede F Seng BP Systolic 2021-06-27 14:59:00 147 mm[Hg] Step hen F Seng BP Diastolic 2021-06-27 14:59:00 86 mm[Hg] Clemente phen F Seng Weight Measured 2021-06-27 14:59:00 155.00 pounds Naveed F Seng Height Measured 2021-06-27 14:59:00 64.00 inches Naveed F Seng Body Temperature 2021-06-27 14:59:00 98.30 degrees Naveed F Seng Heart Rate 2021-06-27 14:59:00 103.00 /min Step hen F Seng Respiratory Rate 2021-06-27 14:59:00 16.00 /min Naveed F Seng BP Systolic 2021-06-14 15:14:00 127 mm[Hg] Step hen F Seng BP Diastolic 2021-06-14 15:14:00 72 mm[Hg] Clemente phen F Seng Weight Measured 2021-06-14 15:14:00 153.00 pounds Naveed F Seng Height Measured 2021-06-14 15:14:00 64.00 inches Naveed F Seng Body Temperature 2021-06-14 15:14:00 97.20 degrees Naveed F Seng Heart Rate 2021-06-14 15:14:00 103.00 /min Step hen F Seng Respiratory Rate 2021-06-14 15:14:00 22.00 /min Naveed F Seng BP Systolic 2018-06-06 16:53:00 129 mm[Hg] Step hen F Seng BP Diastolic 2018-06-06 16:53:00 83 mm[Hg] Clemente phen F Seng Weight Measured 2018-06-06 16:53:00 174.80 pounds Naveed Ellsworth Height Measured 2018-06-06 16:53:00 64.00 inches Naveed Ellsworth Body Temperature 2018-06-06 16:53:00 98.20 degrees Naveed Ellsworth Heart Rate 2018-06-06 16:53:00 93.00 /min Veronique en F Seng Respiratory Rate 2018-06-06 16:53:00 18.00 /min Naveed Ellsworth Procedures Procedure Date / Time Performed Performing Clinician Source CT ABDOMEN PELVIS W CONTRAST 2023-03-03 11:53:11 Jakob García [facility] LIPASE 2023-03-03 11:05:00 Jakob García [facility] COMP. METABOLIC PANEL (49315) 2023-03-03 11:05:00 Jakob García [facility] CBC WITH DIFF 2023-03-03 11:05:00 [facility] URINALYSIS 2023-03-03 11:05:00 Jakob García [facility] NOTICE OF PRIVACY PRACTICES 2023-03-03 10:51:56 Doctor Unassigned, [place] [facility] CONSENT/REFUSAL FOR DIAGNOSIS AND TREATMENT 2023-03-03 10:49:14 Doctor Unassigned, [place] [facility] CT, abdomen + pelvis, w/ contrast 2019-11-17 00:00:00 [facility] Anesth Tubal Ligation [facility] 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 Delivery [facility] Caesarean Section [facility] Tonsillectomy [facility] Plan of Care Planned Activity Planned Date Details Comments Source Diagnostic Test Pending 2021-05-18 00:00:00 urinalysis, dipstick [code = urinalysis, dipstick] [facility] Goal Plan of Care Not e [code = 08222-0] Goal Plan of Care Not e [code = 46364-2] Goal Plan of Care Not e [code = 55065-8] Goal Plan of Care Not e [code = 50851-1] Goal Plan of Care Not e [code = 83212-2] Goal Plan of Care Not e [code = 84451-0] Goal Plan of Care Not e [code = 24316-7] Goal Plan of Care Not e [code = 45224-0] Goal Plan of Care Not e [code = 38526-9] Goal Plan of Care Not e [code = 86825-2] Goal Plan of Care Not e [code = 61321-0] Goal Plan of Care Not e [code = 54850-3] Goal Plan of Care Not e [code = 48735-0] Goal Plan of Care Not e [code = 30741-1] Goal Plan of Care Not e [code = 82426-0] Goal Plan of Care Not e [code = 04122-5] Goal Plan of Care Not e [code = 37673-5] Goal Plan of Care Not e [code = 18144-1] Goal Plan of Care Not e [code = 31319-9] Goal Plan of Care Not e [code = 51226-4] Goal Plan of Care Not e [code = 73015-0] Goal Plan of Care Not e [code = 93357-0] Goal Plan of Care Not e [code = 07426-7] Goal Plan of Care Not e [code = 69555-1] Goal Plan of Care Not e [code = 25319-5] Goal Plan of Care Not e [code = 71594-0] Encounters Start Date/Time End Date/Time Encounter Type Admission Type Attending Clinicians Care Facility Care Department Encounter ID Source 2024-03-18 15:58:15 2024-03-18 15:58:15 Outpatient [facility] [id number] Naveed Ellsworth 2024-03-18 00:00:00 2024-03-18 00:00:00 Outpatient Visit [facility] [id number] Naveed Ellsworth 2023-09-13 13:34:44 2023-09-13 13:34:44 Outpatient [facility] [id number] Naveed Ellsworth 2023-03-03 05:50:00 2023-03-03 07:54:00 Emergency X JAKOB GARCÍA [facility] ERT [id number] [facility] 2023-03-03 05:50:00 2023-03-03 07:54:00 Emergency Jakob García [facility] [id number] [facility] 2023-01-15 13:31:28 2023-01-15 13:31:28 Outpatient [facility] [id number] Naveed Ellsworth 2022-09-05 16:25:08 2022-09-05 16:25:08 Outpatient [facility] [id number] Naveed Ellsworth 2022-07-31 08:33:36 2022-07-31 08:33:36 Outpatient [facility] [id number] Naveed Ellsworth 2022-07-31 00:00:00 2022-07-31 00:00:00 Outpatient Visit [id number] 2022-07-27 16:13:14 2022-07-27 16:13:14 Outpatient [facility] [id number] Naveed Ellsworth 2022-07-18 15:35:38 2022-07-18 15:35:38 Outpatient [facility] [id number] Naveed Ellsworth 2022-07-18 00:00:00 2022-07-18 00:00:00 Outpatient Visit [id number] 2021-05-18 10:25:00 2021-05-18 10:25:00 [facility] [id number] [facility] 2021-05-18 00:00:00 2021-05-18 00:00:00 Kenton Henry MD: [address] [place] [address] [address] [address] , Ph. [facility] [id number] [facility] 2021-05-17 05:49:00 2021-05-17 05:49:00 [facility] [id number] [facility] 2019-11-18 07:02:00 2019-11-18 07:02:00 Outpatient A_Byrd [facility] [id number] [facility] 2019-11-17 02:21:00 2019-11-17 02:21:00 Outpatient A_Byrd [facility] [id number] [facility] 2019-11-17 00:00:00 2019-11-17 00:00:00 Kenton Henry MD: [address] [address] , Ph. [facility] [id number] [facility] 2019-01-21 00:00:00 2019-01-21 00:00:00 Kenton Henry MD: [address] [address] , Ph. [facility] [id number] [facility] Results Test Description Test Time Test Comments Results Result Co mments Source ALBUMIN/CREATININE RATIO, URINE, [id number] 04:36:21* Test Item Value Reference Range Interpretation Comme nts CREATININE, URINE, CONC. (test code = 2072) 27.3 MG/DL NOT ESTAB ALBUMIN, URINE, RANDOM (test code = 26040) <0.2 MG/DL NOT ESTAB CALC ALBUMIN/CREAT, RND (test code = 21934) <7 MG/G <30 Note: Albumin/Creatinine ratio reference interval reflects ADA and NKF guidelines. ALBUMIN/CREATININE RATIO, RANDOM [id number] 00:00:00* Test Item Value Reference Range Interpretation Comme nts CREATININE, URINE, CONC. (te st code = 2072) 27.3 MG/DL ALBUMIN, URINE, RANDOM (test code = 71834) <0.2 MG/DL CALC ALBUMIN/CREAT, RND (shayla t code = 31304) <7 MG/G Naveed EllsworthHEMOGLOBIN [id number] 00:00:00* Test Item Value Reference Range Interpretation Comme nts HEMOGLOBIN A1c (test code = 80993) 11.2 % Naveed EllsworthCOMP. METABOLIC PANEL (48865)2023-03-03 11:38:42* Test Item Value Reference Range Interpretation Comme nts NA (test code = 3290988235) 138 mmol/L 135-145 K (test code = 5446570151) 3.8 mmol/L 3.5-5.0 CL (test code = 0624267108) 103 mmol/L 98-108 CO2 TOTAL (test code = 9984041866) 27 mmol/L 23-31 AGAP (test code = 7965442553) 8 2-16 BUN (test code = 6238615045) 14 mg/dL 7-23 GLUCOSE (test code = 5907333040) 222 mg/dL 70-110 H CREATININE (test code = 9119060651) 0.42 mg/dL 0.50-1.04 L TOTAL BILI (test code = 4943915255) 0.8 mg/dL 0.1-1.1 CALCIUM (test code = 2619860775) 9.3 mg/dL 8.6-10.6 T PROTEIN (test code = 6969309736) 7.1 g/dL 6.3-8.2 ALBUMIN (test code = 7101610262) 4.1 g/dL 3.5-5.0 ALK PHOS (test code = 4384100915) 118 U/L 34-122 ALTv (test code = 1742-6) 18 U/L 5-35 AST(SGOT) (test code = 8403383566) 18 U/L 13-40 eGFR (test code = 8601486379) 158.4 mL/min/1.73m2 ANITA (test code = ANITA) Association of Glomerular Filtration Rate (GFR) and Staging of Kidney Disease* + --+ --+ ------+| GFR (mL/min/1.73 m2) ?| With Kidney Damage ?| ?Without Kidney Damage+ --------+ --------+ +| ?>90 ?| ?Stage one ?| ? Normal ?+ ---+ ---+ -------+| ?60-89 ?| ?Stage two ?| ? Decreased GFR ? + --+ --+ ------+| ?30-59 ?| ?Stage three ?| ? Stage three ? + --+ --+ ------+| ?15-29 ?| ?Stage four ? | ? Stage four ?+ ---+ ---+ -------+| ?<15 (or dialysis) ? ?| ?Stage five ? | ? Stage five ?+ ---+ ---+ -------+ *Each stage assumes the associated GFR level has been in effect for at least three months. ?Stages 1 to 5, with or without kidney disease, indicate chronic kidney disease. Notes: Determination of stages one and two (with eGFR >59mL/min/1.73 m2) requires estimation of kidney damage for at least three months as defined by structural or functional abnormalities of the kidney, manifested by either:Pathological abnormalities or Markers of kidney damage (including abnormalities in the composition of the blood or urine or abnormalities in imaging tests). Lab Interpretation (test code = 23157-1) [facility]38:42* Test Item Value Reference Range Interpretation Comme nts LIPASE (test code = 4906694375) 47 U/L 0-220 Lab Interpretation (test cod e = 06657-7) Normal [facility] WITH [id number] 11:21:40* Test Item Value Reference Range Interpretation [...] g/dL 31.6-35.1 H RDW-SD (test code = 26202-6) 36.6 fL 39.0-49.9 L RDW-CV (test code = 788-0) 11.7 % 12.0-15.5 L PLT (test code = 777-3) 265 See_Comment [Automated messa ge] The system which generated this result transmitted reference range: 166 - 358 10*3/?L. The reference range was not used to interpret this result as normal/abnormal. MPV (test code = 49905-9) 8.8 fL 9.5-12.9 L NRBC/100 WBC (test code = 5323336058) 0.0 See_Comment [Automated [employer] ssage] The system which generated this result transmitted reference range: 0.0 - 10.0 /100 WBCs. The reference range was not used to interpret this result as normal/abnormal. NRBC x10^3 (test code = 4218420845) See_Comment [Automated messa ge] The system which generated this result transmitted reference range: 10*3/?L. The reference range was not used to interpret this result as normal/abnormal. GRAN MAT (NEUT) % (test code = 770-8) 65.0 % IMM GRAN % (test code = 1509513407) 0.30 % LYMPH % (test code = 736-9) 26.9 % MONO % (test code = 5905-5) 6.2 % EOS % (test code = 713-8) 1.3 % BASO % (test code = 706-2) 0.3 % GRAN MAT x10^3(ANC) (test code = 8022864101) 4.53 10*3/uL 1.88-7.09 IMM GRAN x10^3 (test code = 2269090993) 0.00-0.06 LYMPH x10^3 (test code = 731-0) 1.87 10*3/uL 1.32-3.29 MONO x10^3 (test code = 742-7) 0.43 10*3/uL 0.33-0.92 EOS x10^3 (test code = 711-2) 0.09 10*3/uL 0.03-0.39 BASO x10^3 (test code = 704-7) 0.01-0.07 Lab Interpretation (test code = 96426-4) [facility] [id number] 00:00:00* Test Item Value Reference Range Interpretation Comme nts CULTURE, ROUTINE (test code = 74551) SPECIMEN NUMBER: [id number] Naveed Cline [facility] W/AUTO [id number] 00:00:00* Test Item Value Reference Range Interpretation Comme nts WBC (test code = 1001) 7.1 K/UL RBC (test code = 1002) 4.86 M/UL HEMOGLOBIN (test code = 1003) 14.1 G/DL HEMATOCRIT (test code = 1004) 43.7 % MCV (test code = 1005) 89.9 fL MCH (test code = 1006) 29.0 PG MCHC (test code = 1007) 32.3 G/DL RDW (test code = 1038) 11.8 % NEUTROPHILS (test code = 1008) 70.7 % LYMPHOCYTES (test code = 1010) 23.0 % MONOCYTES (test code = 1011) 4.9 % EOSINOPHILS (test code = 1012) 0.7 % BASOPHILS (test code = 1013) 0.4 % IMMATURE GRANULOCYTES (test code = 1036) 0.3 % NUCLEATED RBCS (test code = 1065) 0.0 /100WBC'S PLATELET COUNT (test code = 1015) 345 K/UL ABSOLUTE NEUTROPHILS (test c ode = 1066) 5.00 K/UL ABSOLUTE LYMPHOCYTES (test c ode = 1067) 1.63 K/UL ABSOLUTE MONOCYTES (test cod e = 1068) 0.35 K/UL ABSOLUTE EOSINOPHILS (test c ode = 1040) 0.05 K/UL ABSOLUTE BASOPHILS (test cod e = 1069) 0.03 K/UL ABS IMMATURE GRANULOCYTES (t est code = 1020) 0.02 K/UL ABS NUCLEATED RBCS (test cod e = 65386) 0.00 K/UL Naveed Cline SengCOMPREHENSIVE METABOLIC [id number] 00:00:00* Test Item Value Reference Range Interpretation Comme nts GLUCOSE (test code = 2217) 415 MG/DL BUN (test code = 2208) 12 MG/DL CREATININE (test code = 2214) 0.72 MG/DL eGFR (2020 CKD-EPI) (test code = 78286) 101 ML/MIN/1.73 CALC BUN/CREAT (test code = 2235) 17 RATIO SODIUM (test code = 2231) 139 MEQ/L POTASSIUM (test code = 2228) 4.6 MEQ/L CHLORIDE (test code = 2215) 101 MEQ/L CARBON DIOXIDE (test code = 2206) 26 MEQ/L CALCIUM (test code = 2209) 9.7 MG/DL PROTEIN, TOTAL (test code = 2229) 7.1 G/DL ALBUMIN (test code = 2201) 4.0 G/DL CALC GLOBULIN (test code = 2240) 3.1 G/DL CALC A/G RATIO (test code = 2234) 1.3 RATIO BILIRUBIN, TOTAL (test code = 2207) 0.4 MG/DL ALKALINE PHOSPHATASE (test code = 2204) 145 U/L AST (test code = 2218) 12 U/L ALT (test code = 2219) 13 U/L Naveed EllsworthLIPID [id number] 00:00:00* Test Item Value Reference Range Interpretation Comme nts CHOLESTEROL (test code = 2210) 209 MG/DL TRIGLYCERIDES (test code = 2232) 101 MG/DL HDL CHOLESTEROL (test code = 2220) 53 MG/DL CALC LDL CHOL (test code = 2237) 136 MG/DL RISK RATIO LDL/HDL (test cod e = 2238) 2.57 RATIO Naveed EllsworthHEMOGLOBIN [id number] 00:00:00* Test Item Value Reference Range Interpretation Comme nts HEMOGLOBIN A1c (test code = 07034) 11.3 % Naveed EllsworthVAGINAL PATHOGENS DNA [id number] 16:23:34* Test Item Value Reference Range Interpretation Comme nts ELISA SPECIES (test code = 52747) NEGATIVE NEGATIVE G. VAGINALIS (test code = 62536) NEGATIVE NEGATIVE T. VAGINALIS (test code = 79343) NEGATIVE NEGATIVE UNLESS OTHERWISE INDICATED, ALL TESTING PERFORMED ATCLINICAL PATHOLOGY [email or web address] [address] [place] [address] PROVIDER SERVICE REPRESENTATIVE: MARS ORDONEZ M.D. [place] NUMBER [id number] [facility] [place]. [id number] VAGINAL PATHOGENS DNA [id number] 00:00:00* Test Item Value Reference Range Interpretation Comme nts ELISA SPECIES (test code = 59425) NEGATIVE G. VAGINALIS (test code = 75072) NEGATIVE T. VAGINALIS (test code = 51974) NEGATIVE VAGINAL PATHOGENS DNA [id number] 00:00:00* Test Item Value Reference Range Interpretation Comme nts ELISA SPECIES (test code = 83419) NEGATIVE G. VAGINALIS (test code = 78459) NEGATIVE T. VAGINALIS (test code = 98228) NEGATIVE Naveed EllsworthCORTISOL, [id number] 00:00:00* Test Item Value Reference Range Interpretation Comme nts CORTISOL, RANDOM (test code = 2655) 5.8 UG/DL [id number] 00:00:00* Test Item Value Reference Range Interpretation Comme nts ESTRADIOL (test code = 2505) 21.6 PG/ML [id number] 00:00:00* Test Item Value Reference Range Interpretation Comme nts PROGESTERONE (test code = 2790) 0.21 NG/ML CORTISOL, [id number] 00:00:00* Test Item Value Reference Range Interpretation Comme nts CORTISOL, RANDOM (test code = 2655) 5.8 UG/DL [id number] 00:00:00* Test Item Value Reference Range Interpretation Comme nts ESTRADIOL (test code = 2505) 21.6 PG/ML [id number] 00:00:00* Test Item Value Reference Range Interpretation Comme nts PROGESTERONE (test code = 2790) 0.21 NG/ML CORTISOL, [id number] 00:00:00* Test Item Value Reference Range Interpretation Comme nts CORTISOL, RANDOM (test code = 2655) 5.8 UG/DL Naveed Cline [id number] 00:00:00* Test Item Value Reference Range Interpretation Comme nts ESTRADIOL (test code = 2505) 21.6 PG/ML Naveed Cline [id number] 00:00:00* Test Item Value Reference Range Interpretation Comme nts PROGESTERONE (test code = 2790) 0.21 NG/ML Naveed EllsworthCBC W/AUTO [id number] 00:00:00* Test Item Value Reference Range Interpretation [...] ABS NUCLEATED RBCS (test cod e = 82179) 0.00 K/UL HEMOGLOBIN [id number] 00:00:00* Test Item Value Reference Range Interpretation Comme nts HEMOGLOBIN A1c (test code = 43919) 10.7 % LIPID [id number] 00:00:00* Test Item Value Reference Range Interpretation Comme nts CHOLESTEROL (test code = 2210) 203 MG/DL TRIGLYCERIDES (test code = 2232) 114 MG/DL HDL CHOLESTEROL (test code = 2220) 59 MG/DL CALC LDL CHOL (test code = 2237) 122 MG/DL RISK RATIO LDL/HDL (test cod e = 2238) 2.07 RATIO COMPREHENSIVE METABOLIC [id number] 00:00:00* Test Item Value Reference Range Interpretation Comme nts GLUCOSE (test code = 2217) 368 MG/DL BUN (test code = 2208) 15 MG/DL CREATININE (test code = 2214) 0.77 MG/DL eGFR AMER. (test cod e = 72916) 104 ML/MIN/1.73 eGFR NON- AMER. (test code = 61826) 89 ML/MIN/1.73 CALC BUN/CREAT (test code = [...] code = 2219) 22 U/L CBC W/AUTO [id number] 00:00:00* Test Item Value Reference Range Interpretation [...] ABS NUCLEATED RBCS (test cod e = 10597) 0.00 K/UL [id number] 00:00:00* Test Item Value Reference Range Interpretation Comme [facility] TSH, THIRD GENERATION (test code = 2821) 0.745 UIU/ML HEMOGLOBIN [id number] 00:00:00* Test Item Value Reference Range Interpretation Comme nts HEMOGLOBIN A1c (test code = 72532) 10.7 % LIPID [id number] 00:00:00* Test Item Value Reference Range Interpretation Comme nts CHOLESTEROL (test code = 2210) 203 MG/DL TRIGLYCERIDES (test code = 2232) 114 MG/DL HDL CHOLESTEROL (test code = 2220) 59 MG/DL CALC LDL CHOL (test code = 2237) 122 MG/DL RISK RATIO LDL/HDL (test cod e = 2238) 2.07 RATIO COMPREHENSIVE METABOLIC [id number] 00:00:00* Test Item Value Reference Range Interpretation Comme nts GLUCOSE (test code = 2217) 368 MG/DL BUN (test code = 2208) 15 MG/DL CREATININE (test code = 2214) 0.77 MG/DL eGFR AMER. (test cod e = 83082) 104 ML/MIN/1.73 eGFR NON- AMER. (test code = 85692) 89 ML/MIN/1.73 CALC BUN/CREAT (test code = [...] ALT (test code = 2219) 22 U/L [id number] 00:00:00* Test Item Value Reference Range Interpretation Comme nts TSH, THIRD GENERATION (test code = 2821) 0.745 UIU/ML CBC W/AUTO [id number] 00:00:00* Test Item Value Reference Range Interpretation [...] ABS NUCLEATED RBCS (test cod e = 57654) 0.00 K/UL Naveed EllsworthHEMOGLOBIN [id number] 00:00:00* Test Item Value Reference Range Interpretation Comme nts HEMOGLOBIN A1c (test code = 73299) 10.7 % Naveed EllsworthLIPID [id number] 00:00:00* Test Item Value Reference Range Interpretation Comme nts CHOLESTEROL (test code = 2210) 203 MG/DL TRIGLYCERIDES (test code = 2232) 114 MG/DL HDL CHOLESTEROL (test code = 2220) 59 MG/DL CALC LDL CHOL (test code = 2237) 122 MG/DL RISK RATIO LDL/HDL (test cod e = 2238) 2.07 RATIO Naveed EllsworthCOMPREHENSIVE METABOLIC [id number] 00:00:00* Test Item Value Reference Range Interpretation Comme nts GLUCOSE (test code = 2217) 368 MG/DL BUN (test code = 2208) 15 MG/DL CREATININE (test code = 2214) 0.77 MG/DL eGFR AMER. (test cod e = 18770) 104 ML/MIN/1.73 eGFR NON- AMER. (test code = 93472) 89 ML/MIN/1.73 CALC BUN/CREAT (test code = [...] ALT (test code = 2219) 22 U/L Naveed [id number] 00:00:00* Test Item Value Reference Range Interpretation Comme nts TSH, THIRD GENERATION (test code = 2821) 0.745 UIU/ML Naveed EllsworthUrinalysis macro (dipstick) panel - [id number] 11:36:00* Test Item Value Reference Range Interpretation Comme nts Leukocytes (test code = Leukocytes) Negative Nitrite (test code = Nitrite) negative Urobilinogen (test code = Urobilinogen) .2 Protein (test code = Protein) Negative pH (test code = pH) 5.5 Blood (test code = Blood) Hemolyzed: Trace Specific [place] (test code = Specific [place]) 1.030 Ketone (test code = Ketone) Negative Bilirubin (test code = Bilirubin) Negative Glucose (test code = Glucose) Negative Appearance (test code = Appearance) Clear Color (test code = Color) Yellow [facility] W Auto Differential panel - [id number] 00:00:00 * Test Item Value Reference Range [...] immature cells (test code = immature cells) [facility] Neutrophils [#/volume] in Bl ood by Automated [...] Blood by Automated count (test code = 35139-7) 0.0 x10e3/uL 0.0-0.1 Nucleated erythrocytes/100 leukocytes [Ratio] in Blood by Automated count (test code = 10278-6) [facility] Morphology [Interpretation] in Blood Narrative (test code = 22517-4) [facility] - Serum or Plasma [...] in Serum or Plasma (test code = 5-0) 100 mmol/L 96-106 Carbon dioxide, total [Moles/volume] in Serum or Plasma (test code = 2027-) 22 mmol/L 20-29 Calcium [Mass/volume] in Serum or Plasma (test code = 96461-1) 9.1 mg/dL 8.7-10.2 Protein [Mass/volume] in Serum or Plasma (test code = 2885-2) 7.1 g/dL 6.0-8.5 Albumin [Mass/volume] in Serum or Plasma (test code = 1751-7) 4.2 g/dL 3.8-4.8 Globulin [Mass/volume] in Serum by calculation (test code = 41779-5) 2.9 g/dL 1.5-4.5 Albumin/Globulin [Mass Ratio ] in Serum or Plasma (test code = 1759-0) 1.4 1.2-2.2 Bilirubin.total [Mass/volume ] in Serum or Plasma (test code = 1974-2) 0.5 mg/dL 0.0-1.2 Alkaline phosphatase [Enzymatic activity/volume] in Serum or Plasma (test code = 6768-6) 129 IU/L 39-117 H Aspartate aminotransferase [Enzymatic activity/volume] in Serum or Plasma (test code = 1920-8) 13 IU/L 0-40 Alanine aminotransferase [Enzymatic activity/volume] in Serum or Plasma (test code = 1742-6) 11 IU/L 0-32 [facility] 1996 [facility] - Serum or [id number] 00:00:00* Test Item Value Reference Range Interpretation [...] or Plasma by calculation (test code = 46641-1) 13 mg/dL 5-40 Cholesterol in LDL [Mass/vol ume] in Serum or Plasma by calculation (test code = 06411-8) 114 mg/dL 0-99 H comment: (test code = comment:) [facility] Group[facility]ase [Enzymatic activity/volume] in Serum or Plasma 2019-11-18 00:00:00* Test Item Value Reference Range Interpretation Comme nts Lipase [Enzymatic activity/v olume] in Serum or Plasma (test code = 3040-3) 17 U/L 14-72 [facility] [Enzymatic activity/volume] in Serum or Plasma 2019-11-18 00:00:00* Test Item Value Reference Range Interpretation Comme nts Amylase [Enzymatic activity/ volume] in Serum or Plasma (test code = 1798-8) 32 U/L 31-110 [facility] blood [id number] 09:25:00* Test Item Value Reference Range Interpretation Comme [facility] blood collection (test code = [facility] blood collection) [facility] GroupURINALYSIS W/REFLEX [id number] 00:00:00* Test Item Value Reference Range Interpretation [...] = 1512) TEST NOT PERFORMED URINALYSIS W/REFLEX [id number] 00:00:00* Test Item Value Reference Range Interpretation [...] = 1512) TEST NOT PERFORMED URINALYSIS W/REFLEX [id number] 00:00:00* Test Item Value Reference Range Interpretation [...] (test code = 1512) TEST NOT PERFORMED Naveed Cline AustinLIPID [id number] 00:00:00* Test Item Value Reference Range Interpretation Comme nts CHOLESTEROL (test code = 2210) 196 MG/DL TRIGLYCERIDES (test code = 2232) 70 MG/DL HDL CHOLESTEROL (test code = 2220) 51 MG/DL CALC LDL CHOL (test code = 2237) 131 MG/DL RISK RATIO LDL/HDL (test cod e = 2238) 2.57 RATIO CBC W/AUTO [id number] 00:00:00* Test Item Value Reference Range Interpretation [...] (test code = 1015) 290 K/UL HEMOGLOBIN [id number] 00:00:00* Test Item Value Reference Range Interpretation Comme nts HEMOGLOBIN A1c (test code = 69689) 8.3 % [id number] 00:00:00* Test Item Value Reference Range Interpretation Comme nts TSH, THIRD GENERATION (test code = 2821) 1.070 UIU/ML COMPREHENSIVE METABOLIC [id number] 00:00:00* Test Item Value Reference Range Interpretation Comme nts GLUCOSE (test code = 2217) 229 MG/DL BUN (test code = 2208) 12 MG/DL CREATININE (test code = 2214) 0.70 MG/DL eGFR AMER. (test cod e = 77193) 119 ML/MIN/1.73 eGFR NON- AMER. (test code = 78851) 102 ML/MIN/1.73 CALC BUN/CREAT (test code = [...] (test code = 2219) 12 U/L LIPID [id number] 00:00:00* Test Item Value Reference Range Interpretation Comme nts CHOLESTEROL (test code = 2210) 196 MG/DL TRIGLYCERIDES (test code = 2232) 70 MG/DL HDL CHOLESTEROL (test code = 2220) 51 MG/DL CALC LDL CHOL (test code = 2237) 131 MG/DL RISK RATIO LDL/HDL (test cod e = 2238) 2.57 RATIO CBC W/AUTO [id number] 00:00:00* Test Item Value Reference Range Interpretation [...] (test code = 1015) 290 K/UL HEMOGLOBIN [id number] 00:00:00* Test Item Value Reference Range Interpretation Comme nts HEMOGLOBIN A1c (test code = 01798) 8.3 % [id number] 00:00:00* Test Item Value Reference Range Interpretation Comme nts TSH, THIRD GENERATION (test code = 2821) 1.070 UIU/ML COMPREHENSIVE METABOLIC [id number] 00:00:00* Test Item Value Reference Range Interpretation Comme nts GLUCOSE (test code = 2217) 229 MG/DL BUN (test code = 2208) 12 MG/DL CREATININE (test code = 2214) 0.70 MG/DL eGFR AMER. (test cod e = 73588) 119 ML/MIN/1.73 eGFR NON- AMER. (test code = 30693) 102 ML/MIN/1.73 CALC BUN/CREAT (test code = [...] code = 2219) 12 U/L COMPREHENSIVE METABOLIC [id number] 00:00:00* Test Item Value Reference Range Interpretation Comme nts GLUCOSE (test code = 2217) 229 MG/DL BUN (test code = 2208) 12 MG/DL CREATININE (test code = 2214) 0.70 MG/DL eGFR AMER. (test cod e = 52672) 119 ML/MIN/1.73 eGFR NON- AMER. (test code = 45346) 102 ML/MIN/1.73 CALC BUN/CREAT (test code = [...] ALT (test code = 2219) 12 U/L Naveed EllsworthLIPID [id number] 00:00:00* Test Item Value Reference Range Interpretation Comme nts CHOLESTEROL (test code = 2210) 196 MG/DL TRIGLYCERIDES (test code = 2232) 70 MG/DL HDL CHOLESTEROL (test code = 2220) 51 MG/DL CALC LDL CHOL (test code = 2237) 131 MG/DL RISK RATIO LDL/HDL (test cod e = 2238) 2.57 RATIO Naveed EllsworthCBC W/AUTO [id number] 00:00:00* Test Item Value Reference Range Interpretation [...] COUNT (test code = 1015) 290 K/UL Naveed EllsworthHEMOGLOBIN [id number] 00:00:00* Test Item Value Reference Range Interpretation Comme nts HEMOGLOBIN A1c (test code = 39266) 8.3 % Naveed [id number] 00:00:00* Test Item Value Reference Range Interpretation Comme nts TSH, THIRD GENERATION (test code = 2821) 1.070 UIU/ML Naveed Ellsworth Notes Date/Time Note Provider Source Naveed Ellsworth [facility]"
[2024-07-18] MEDS ORDERED: NA CHLORIDE 0.9% 1,000 ML ONE (10:00)
[2024-07-18 10:07] LABS: Absolute Eosinophils 0.1 K/uL (0-0.5); Absolute Lymphocytes (CBC) 1.5 K/uL (0.7-4.9); Absolute Monocytes 0.3 K/uL (0.1-1.3); Absolute Neutrophil 5.2 K/uL (1.8-8.0); Basophils % 0.2 % (0-1.3); Eosinophils % 1.3 % (0-4.4); Hematocrit 37.1 % (36.0-45.0); Hemoglobin 12.7 g/dL (12.0-15.0); Lymphocytes % 20.5 % (15.3-44.8); MCHC 34.1 g/dL (32.0-36.0); MCV 87.9 fL (80-100); Monocytes % 4.7 % (3.3-12.3); Neutrophils % 73.3 % (41.7-73.7); Platelets 281 thou/uL (152-406); RBC Red Blood Cell Count 4.22 M/uL (3.86-4.86); Red Cell Distribution Width 12.8 % (12.1-15.2)
[2024-07-18 10:22] LABS: Anion Gap 8.5 mEq/L (5.0-15.0); Potassium 3.5 mEq/L (3.5-5.1); Troponin High Sensitivity 4.4 pg/mL (<58.9)
[2024-07-18 10:48] LABS: Specific Gravity 1.007 (1.005-1.030); Sqamous Epithelial <5 /HPF (None Seen); Urine Bacteria <20 /HPF (<20); Urine Bilirubin NEGATIVE (Negative); Urine Blood Negative (Negative); Urine Clarity Turbid (Clear); Urine Color Colorless (Yellow); Urine Culture Reflex Order NOT NEEDED; Urine Glucose NEGATIVE (Negative); Urine Ketones NEGATIVE (Negative); Urine Microscopic Reflex YN ORDER UMIC; Urine Nitrite NEGATIVE (Negative); Urine Protein NEGATIVE (Negative); Urine RBC <5 /HPF (None Seen); Urine Urobilinogen Normal (Normal); Urine WBC None Seen /HPF (<5)
--- NOTE | 2024-07-18 11:03 | RAD REPORT ---
Procedure: Chest Single View HISTORY: Chest pain COMPARISON: 2022 FINDINGS: The lungs appear clear of acute infiltrate. No significant pleural effusion noted. The heart is normal size. IMPRESSION: No acute abnormality is displayed.
--- NOTE | 2024-07-18 11:17 | RAD REPORT ---
EXAMINATION: CT ABDOMEN AND PELVIS WITH CONTRAST CLINICAL INDICATION: Abdominal pain TECHNIQUE: CT abdomen and pelvis was performed, after the administration of 100 cc Isovue-300.. Sagit kirstie and coronal reconstructions were obtained. One or more of the following dose reduction techniques were used: Automated exposure control, adjustment of the mA and kV according to patient si ze, and iterative reconstruction. Unless otherwise specified, incidental findings do not require dedicated imaging follow-up. [id number]. Oral contrast was not given which limits evaluation of bowel and appendix. COMPARISON: 2022 FINDINGS: Liver, spleen, pancreas, adrenals and left kidney appear unremarkable. Tiny calculus right kidney. No hydronephrosis. Normal appendix. Retroverted uterus. 2.7 cm right ovarian cyst. No follow-up imaging recommended. No significant free fluid. Tubal ligation clips are present. There is no evidence of diverticulitis Prominent spondylosis L4-5 Moderate amount of stool within portions of the ascending and transverse colon as well as part of the descending colon. : IMPRESSION: 2.7 cm right ovarian cyst without significant free fluid
--- NOTE | 2024-07-18 11:19 | ER ---
Nurse's Notes [facility] Name: Carmen Stahl Age: 54 yrs Sex: Female : 1970 Arrival Date: 07/18/2024 Time: 09:22 Bed 6 Private MD: Diagnosis: Abdominal pain, Generalized;Abdominal tenderness;Hypoglycemia, unspecified;Other ovarian cysts Presentation: 07/18 09:33 Chief complaint: Patient states: she felt like her blood sugar was low, and her eye was ap3 going to "pop out of socket" patient also complains of left sided abdominal pain that she rates a 7/10 on the pain scale. patient denies any NVD. Coronavirus screen: At this time, the client does not indicate any symptoms associated with coronavirus-19. Ebola Screen: No symptoms or risks identified at this time. Initial Sepsis Screen: Does the patient meet any 2 criteria? No. Patient's initial sepsis screen is negative. Does the patient have a suspected source of infection? No. Patient's initial sepsis screen is negative. Risk Assessment: Do you want to hurt yourself or someone else? Patient reports no desire to harm self or others. Onset of symptoms was July 18, 2024. Transition of care: patient was not received from another setting of care. 09:33 Method Of Arrival: Ambulatory ap3 09:33 Acuity: RIA 3 ap3 Triage Assessment: 09:35 General: Appears uncomfortable, Behavior is calm, cooperative, appropriate for age. ap3 Pain: Complains of pain in left upper quadrant and left lower quadrant Pain currently is 7 out of 10 on a pain scale. Pain began today. Neuro: Level of Consciousness is awake, alert, obeys commands, Oriented to person, place, time, situation, Appropriate for age. Cardiovascular: Patient's skin is warm and dry. Respiratory: Airway is patent Respiratory effort is even, unlabored, Respiratory pattern is regular, symmetrical. GI: Reports lower abdominal pain, upper abdominal pain, Patient currently denies diarrhea, nausea. DATA TECHNICAL LEAD: 11:15 LMP N/A - , Not ap3 Historical: - Allergies: 09:35 No Known Allergies; ap3 - PMHx: 09:35 Arthritis; Diabetes - IDDM; Glaucoma; Osteoporosis; ap3 - PSHx: 09:35 section; ap3 - Immunization history:: Client reports having NOT received the Covid vaccine. Flu vaccine is not up to date. - Infectious Disease History:: Denies. - Social history:: Smoking status: Patient denies any tobacco usage or history of. Screenin:36 [facility] ED Fall Risk Assessment (Adult) History of falling in the last 3 months, ap3 including since admission No falls in past 3 months (0 pts) Confusion or Disorientation No (0 pts) Intoxicated or Sedated No (0 pts) Impaired Gait No (0 pts) Mobility Assist Device Used No (0 pt) Altered Elimination No (0 pt) Score/Fall Risk Level 0 - 2 = Low Risk Oriented to surroundings, Maintained a safe environment, Educated pt \\T\\ family on fall prevention, incl call for assistance when getting out of bed, Assessed \\T\\ reinforced patient's understanding of fall precautions, Hourly rounding (assess needs \\T\\ fall precautionary measures) done, Used ambulatory aids as needed (educated on \\T\\ assisted with), Used gait belt as appropriate. Abuse screen: Denies threats or abuse. Nutritional screening: No deficits noted. Tuberculosis screening: No symptoms or risk factors identified. Assessment: 11:15 GI: Bowel sounds present X 4 quads. Abd is soft X 4 quads. ap3 11:45 Reassessment: Patient is alert, oriented x 3, equal unlabored respirations, skin aa5 warm/dry/pink. Answered call light, Pt requesting discharge paperwork, notified pt I will be back with d/c paperwork. . 12:01 Reassessment: Patient is alert, oriented x 3, equal unlabored respirations, skin aa5 warm/dry/pink. 12:01 Reassessment: Pt appears upset, pt states "so he's just going to send me home even aa5 though I am the same as when I came in?", offered pt to send MD back into room to speak to her about POC, pt declined, pt states "I'll just go home and ". . Vital Signs: 09:33 BP 178 / 82; Pulse 87; Resp 16; Temp 98.2(O); Pulse Ox 98% on R/A; Weight 81.65 kg; ap3 Height 5 ft. 4 in. ; Pain 7/10; 09:38 BP 162 / 90; Pulse 83; Pulse Ox 100% on R/A; ap3 09:33 Body Mass Index 30.90 (81.65 kg, 162.56 cm) ap3 09:33 Pain Scale: Adult ap3 ED Course: 09:23 Patient arrived in ED. mr 09:24 Jabari Mcrae MD is Attending Physician. baylee 09:31 Maarl Negron, SAL is Primary Nurse. ap3 09:35 Triage completed. ap3 09:36 Arm band placed on right wrist. ap3 09:37 Patient has correct armband on for positive identification. Bed in low position. Call ap3 light in reach. Side rails up X 1. Provided Education on: call light instructions. Pulse ox on. NIBP on. Door closed. Noise minimized. 09:56 Initial lab(s) drawn, by me, sent to lab. Inserted saline lock: 20 gauge in right ap3 antecubital area, using aseptic technique. Blood collected. Flushed with 10 mL NS. 10:46 CT Abd/Pelvis - IV Contrast Only In Process Unspecified. EDMS 10:55 XRAY Chest (1 view) In Process Unspecified. EDMS 12:01 No provider procedures requiring assistance completed. IV discontinued, intact, aa5 bleeding controlled, No redness/swelling at site. Pressure dressing applied. Administered Medications: 10:01 Drug: NS 0.9% IV 1000 ml IV at 1 bolus Per protocol; to be given as a bolus over 60 ap3 minutes Route: IV; Rate: 1 bolus; Site: right antecubital; 19:16 Follow up: IV Status: Completed infusion; IV Intake: 1000ml ap3 Medication: 09:37 VIS not applicable for this client. ap3 Intake: 19:16 IV: 1000ml; Total: 1000ml. ap3 Outcome: 11:18 Discharge ordered by . baylee 12:01 Discharged to home ambulatory, with family, ludwig 12:01 Condition: stable 12:01 Discharge instructions given to patient, Instructed on discharge instructions, follow up and referral plans. medication usage, Demonstrated understanding of instructions, follow-up care, medications, Prescriptions given X 3, See nursing notes. 12:03 Patient left the ED. aa5 Signatures: Dispatcher [employer] EDCO Jabari Mcrae MD MD cha Rivera, Mary, Reg Reg mr JamesAlethea RN RN aa5 Prokisch, Maral, RN RN ap3 Corrections: (The following items were deleted from the chart) 12: 11:45 Reassessment: Patient is alert, oriented x 3, equal unlabored respirations, skin aa5 warm/dry/pink. Pt requesting discharge paperwork, notified pt I will be back with d/c paperwork. . aa5
--- NOTE | 2024-07-18 11:19 | EDPHYS ---
Physician Documentation [facility] Name: Carmen Stahl Age: 54 yrs Sex: Female : 1970 Arrival Date: 07/18/2024 Time: 09:22 Bed 6 Private MD: ED Physician Jabari Mcrae HPI: 07/18 10:38 This 54 yrs old Female presents to ER via Ambulatory with complaints of Low Blood baylee Sugar, Vision Problem, Abdominal Pain. 10:38 The patient or guardian reports hyperglycemia. Onset: The symptoms/episode baylee began/occurred 2 day(s) ago. NIGHT GUARD: 11:15 LMP N/A - , Not ap3 Historical: - Allergies: 09:35 No Known Allergies; ap3 - PMHx: 09:35 Arthritis; Diabetes - IDDM; Glaucoma; Osteoporosis; ap3 - PSHx: 09:35 section; ap3 - Immunization history:: Client reports having NOT received the Covid vaccine. Flu vaccine is not up to date. - Infectious Disease History:: Denies. - Social history:: Smoking status: Patient denies any tobacco usage or history of. ROS: 10:40 Constitutional: Negative for fever, chills, and weight loss, Eyes: Negative for injury, baylee pain, redness, and discharge, ENT: Negative for injury, pain, and discharge, Neck: Negative for injury, pain, and swelling, Cardiovascular: Negative for chest pain, palpitations, and edema, Respiratory: Negative for shortness of breath, cough, wheezing, and pleuritic chest pain, Back: Negative for injury and pain, : Negative for injury, bleeding, discharge, and swelling, MS/Extremity: Negative for injury and deformity, Skin: Negative for injury, rash, and discoloration, Neuro: Negative for headache, weakness, numbness, tingling, and seizure, Psych: Negative for depression, anxiety, suicide ideation, homicidal ideation, and hallucinations, Allergy/Immunology: Negative for hives, rash, and allergies, Endocrine: Negative for neck swelling, polydipsia, polyuria, polyphagia, and marked weight changes, Hematologic/Lymphatic: Negative for swollen nodes, abnormal bleeding, and unusual bruising, 10:40 Abdomen/GI: Positive for abdominal pain, of the left upper quadrant, Exam: 10:40 Constitutional: This is a well developed, well nourished patient who is awake, alert, baylee and in no acute distress. Head/Face: Normocephalic, atraumatic. Eyes: Pupils equal round and reactive to light, extra-ocular motions intact. Lids and lashes normal. Conjunctiva and sclera are non-icteric and not injected. Cornea within normal limits. Periorbital areas with no swelling, redness, or edema. ENT: Nares patent. No nasal discharge, no septal abnormalities noted. Tympanic membranes are normal and external auditory canals are clear. Oropharynx with no redness, swelling, or masses, exudates, or evidence of obstruction, uvula midline. Mucous membranes moist. Neck: Trachea midline, no thyromegaly or masses palpated, and no cervical lymphadenopathy. Supple, full range of motion without nuchal rigidity, or vertebral point tenderness. No Meningismus. Chest/axilla: Normal chest wall appearance and motion. Nontender with no deformity. No lesions are appreciated. Cardiovascular: Regular rate and rhythm with a normal S1 and S2. No gallops, murmurs, or rubs. Normal PMI, no JVD. No pulse deficits. Respiratory: Lungs have equal breath sounds bilaterally, clear to auscultation and percussion. No rales, rhonchi or wheezes noted. No increased work of breathing, no retractions or nasal flaring. Back: No spinal tenderness. No costovertebral tenderness. Full range of motion. Skin: Warm, dry with normal turgor. Normal color with no rashes, no lesions, and no evidence of cellulitis. MS/ Extremity: Pulses equal, no cyanosis. Neurovascular intact. Full, normal range of motion. Neuro: Awake and alert, GCS 15, oriented to person, place, time, and situation. Cranial nerves II-XII grossly intact. Motor strength 5/5 in all extremities. Sensory grossly intact. Cerebellar exam normal. Normal gait. Psych: Awake, alert, with orientation to person, place and time. Behavior, mood, and affect are within normal limits. 10:40 Abdomen/GI: Inspection: abdomen appears normal, Bowel sounds: normal, Palpation: mild abdominal tenderness, in the left upper quadrant, Liver: no appreciated palpable abnormalities, Hernia: not appreciated, 10:46 ECG was reviewed by the Attending Physician. [facility] Vital Signs: 09:33 BP 178 / 82; Pulse 87; Resp 16; Temp 98.2(O); Pulse Ox 98% on R/A; Weight 81.65 kg; ap3 Height 5 ft. 4 in. ; Pain /10; 09:38 BP 162 / 90; Pulse 83; Pulse Ox 100% on R/A; ap3 09:33 Body Mass Index 30.90 (81.65 kg, 162.56 cm) ap3 09:33 Pain Scale: Adult ap3 MDM: 09:24 Medical Screening Exam initiated [facility] 09:29 Medical Screening Exam initiated [facility] 10:42 Differential diagnosis: hyperglycemia. Data reviewed: vital signs, nurses notes, lab [facility] test result(s), EKG, radiologic studies, CT scan, plain films. Consideration of Admission/Observation Escalation of care including admission/observation considered. I considered the following discharge prescriptions or medication management in the emergency department Medications were administered in the Emergency Department. See MAR. Test considered but Not performed: Ultrasound NO ABD USG. Historians other than the Patient: Spouse/Significant Other: SPOUSE WELL INFORMED. Care significantly affected by the following chronic conditions: Diabetes, OA, GLAUCOMA. 07/18 09:45 Order name: Glucose, Ancillary Testing; Complete Time: 10:38 EDMS 07/18 09:51 Order name: Basic Metabolic Panel; Complete Time: 10:38 ap3 07/18 09:51 Order name: CBC with Diff; Complete Time: 10:38 ap3 07/18 09:51 Order name: Troponin HS; Complete Time: 10:38 ap3 07/18 10:01 Order name: Lipase; Complete Time: 10:38 baylee 07/18 10:01 Order name: Urinalysis w/ reflexes; Complete Time: 11:18 [facility] 07/18 09:51 Order name: XRAY Chest (1 view); Complete Time: 11:18 ap3 07/18 09:51 Order name: CT Abd/Pelvis - IV Contrast Only ap3 07/18 09:51 Order name: EKG; Complete Time: 09:51 ap3 07/18 09:51 Order name: Cardiac monitoring; Complete Time: 10:29 ap3 07/18 09:51 Order name: EKG - Nurse/Tech; Complete Time: 10:23 ap3 07/18 09:51 Order name: IV Saline Lock; Complete Time: 09:56 ap3 07/18 09:51 Order name: Labs collected and sent; Complete Time: 09:57 ap3 07/18 09:51 Order name: O2 Per Protocol; Complete Time: 09:51 ap3 07/18 09:51 Order name: O2 Sat Monitoring; Complete Time: 09:51 ap3 EC:46 Rate is 85 beats/min. Rhythm is regular. QRS Britt is Normal. MD interval is normal. QRS baylee interval is normal. QT interval is normal. No Q waves. T waves are Normal. No ST changes noted. Clinical impression: Normal ECG and No evidence of ischemia. Interpreted by me. Reviewed by me. Administered Medications: 10:01 Drug: NS 0.9% IV 1000 ml IV at 1 bolus Per protocol; to be given as a bolus over 60 ap3 minutes Route: IV; Rate: 1 bolus; Site: right antecubital; 19:16 Follow up: IV Status: Completed infusion; IV Intake: 1000ml ap3 Disposition Summary: 07/18/24 11:18 Discharge Ordered Notes: Location: Home baylee Problem: new baylee Symptoms: have improved baylee Condition: Stable baylee Diagnosis - Abdominal pain, Generalized baylee - Abdominal tenderness baylee - Hypoglycemia, unspecified baylee - Other ovarian cysts baylee Followup: baylee - With: Private Physician - When: 2 - 3 days - Reason: Recheck today's complaints, Continuance of care, Re-evaluation by your physician Discharge Instructions: - Discharge Summary Sheet baylee - Abdominal Pain, Adult baylee - Hypoglycemia baylee - Ovarian Cyst baylee - Abdominal Pain, Adult, [id number] baylee - Ovarian Cyst, [id number] baylee - Blood Glucose Monitoring, Adult baylee - Hypoglycemia, [id number] baylee Forms: - Medication Reconciliation Form baylee - Antibiotic Education baylee - Prescription Opioid Use baylee - Patient Portal Instructions [facility] - Leadership Thank You Letter [facility] Prescriptions: - Ibuprofen 600 mg Oral tablet - take 1 tablet ORAL route every 6 hours As needed take with food; 20 tablet; baylee Refills: 0, Product Selection Permitted - Pepcid 20 mg Oral tablet - take 1 tablet ORAL route every 12 hours for 21 days; 42 tablet; Refills: 0, [facility] Product Selection Permitted - dicyclomine 20 mg Oral tablet - take 1 tablet ORAL route 4 times per day; 28 tablet; Refills: 0, Product baylee Selection Permitted Signatures: Dispatcher [employer] Jabari Keyes MD MD cha Prokisch, Amanda RN RN ap3 Corrections: (The following items were deleted from the chart) 09:51 09:51 BASIC METABOLIC PANEL+C.LAB.BRZ ordered. EDMS EDMS 09:51 09:51 CBC+H.LAB.BRZ ordered. EDMS EDMS 09:51 09:51 Troponin High Sensitivity+C.LAB.BRZ ordered. EDMS EDMS 10:01 10:01 LIPASE+C.LAB.BRZ ordered. EDMS EDMS 10:01 10:01 Urinalysis+U.LAB.BRZ ordered. EDMS EDMS
[2024-07-18 15:51] VITALS: TEMP 98.2
[2024-07-18 15:52] VITALS: BP 162/90; O2SAT 100
--- NOTE | 2024-07-21 13:00 | EKG ---
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
== END 2024-07-18 12:03 | disposition home or self-care (01) ==
LOC: ER 09:22
DX: R10.84 Generalized abdominal pain (principal); R10.812 Left upper quadrant abdominal tenderness; E11.649 Type 2 diabetes mellitus with hypoglycemia without coma; N83.299 Other ovarian cyst, unspecified side
CPT/HCPCS: 36415; 71045; 74177; 80048; 81001; 82947; 83690; 84484; 85025; 93005; 96360; 96361; 99284; J7030; Q9967